=== PATIENT | male | born 1950 | race Caucasian/White ===

== ENCOUNTER 2019-10-26 20:34 | Inpatient (IN) ==
[2019-10-26] MEDS ORDERED: METOPROLOL TARTRATE 1 MG/ML VIAL IV STA (21:05)
[2019-10-26] MEDS ORDERED: SODIUM CHLORIDE 0.9% 500 ML IV SCH (21:15)
[2019-10-26 21:22] LABS: Basophils # (auto) 0.03 K/uL (0-0.2); Basophils % (auto) 0.3 %; Eosinophils # (auto) 0.48 K/uL (0-0.5); Hematocrit (blood only) 45.5 % (42-52); Hemoglobin 15.1 g/dL (14.0-18.0); Immature Granulocytes # (auto) 0.03 K/uL (0.00-0.02); Immature Granulocytes % (auto) 0.3 %; Lymphocytes # (auto) 1.77 K/uL (1.2-3.4); Lymphocytes % (auto) 18.6 %; Mean Corpuscular Hemoglobin 31.9 pg (25-34); Mean Corpuscular Hgb Conc 33.2 g/dL (32-36); Mean Platelet Volume 10.6 fL (7.4-10.4); Monocytes # (auto) 0.95 K/uL (0.11-0.59); Neutrophils # (auto) 6.26 K/uL (1.4-6.5); Neutrophils % (auto) 65.8 %; Platelet Count 172 K/uL (130-400); RDW Standard Deviation 45.7 fL (36.4-46.3); Red Blood Count 4.74 M/uL (4.7-6.1); White Blood Count 9.52 K/uL (4.8-10.8)
[2019-10-26 21:29] LABS: Albumin Level 3.2 gm/dl (3.4-5.0); BUN Creatinine Ratio 14.5 (10-20); Calcium 8.8 mg/dl (8.5-10.1); Creatinine Clr Calc Pharmacy 48.5 ml/min; Est GFR (African American) 56.1; Est GFR (Non-African American) 48.4; Magnesium 2.1 mg/dl (1.8-2.4); Potassium 3.2 mmol/L (3.5-5.1)
--- NOTE | 2019-10-26 21:30 | XRay Report ---
XR chest 1V portable HISTORY: weakness COMPARISON: None. FINDINGS: The heart is mildly enlarged. Left-sided dual-chamber pacemaker/defibrillator. The lungs ar e clear. No evidence for pulmonary edema. No pleural effusions. No pneumothorax. IMPRESSION: Mild cardiomegaly. Otherwise, no acute process within the chest. ACT 112: Negative or not required by law. Electronically signed by: Clayton Monroe M.D. 10/26/2019 9:29 PM
[2019-10-26] MEDS ORDERED: 0.2 MICRON FILTER SET 1 EA IV ONE ×2 (21:31→21:39)
[2019-10-26] MEDS ORDERED: AMIODARONE / D5W 150 MG/100 ML BAG IV ONE (21:31)
[2019-10-26 21:34] LABS: Albumin Globulin Ratio 0.8 (0.9-2); Bilirubin,Total 0.5 mg/dl (0.2-1); Globulin 3.9 gm/dl (2.5-4.0); Total Protein 7.1 gm/dl (6.4-8.2); Troponin I 0.032 ng/ml (0-0.045)
[2019-10-26 21:36] LABS: INR 1.1 (0.9-1.1); Partial Thromboplastin Ratio 0.9; Partial Thromboplastin Time 24.7 Seconds (21.0-31.0); Prothrombin Time 11.4 Seconds (9.0-12.0)
[2019-10-26] MEDS ORDERED: STAT IV Infusion **Titration per Protocol STA (21:39)
[2019-10-26] MEDS ORDERED: AMIODARONE / D5W 150 MG/100 ML BAG IV STA (21:39)
[2019-10-26] MEDS ORDERED: AMIODARONE IV BOLUS / DRIP IV STA (21:39)
[2019-10-26] MEDS ORDERED: AMIODARONE / D5W 360 MG/200 ML BAG IV SCH (21:45)
--- NOTE | 2019-10-26 22:34 | Emergency Department Note ---
Entered by Vanesa Ruiz acting as a scribe for History of Present Illness General Chief complaint: Cardiac Assessment Stated complaint: defib firing Time Seen by Provider: 10/26/19 20:55 Source: patient History of Present Illness Onset (ago): hour(s) (just prior to arrival) Location: chest Severity: similar to prior episodes Pain Consistency: + other (multiple episodes) Maximum Pain Intensity: 0 Quality: + other (defibrillator firing ) Associated symptoms: + other (negative dizziness; negative palpitations ); no ch est pain, no diaphoresis, no headaches and no shortness of breath The patient is a 69 year old male who presents to the Emergency Room with complaints of multiple episodes of defibrillator firing that occurred just prior to arrival. The patient states that it fired 10 times in approximately 30 minutes. He denies chest pain, shortness of breath, sweating, headache, dizziness, and palpitations. The patient states that he has felt at his baseline. The patient states that his defibrillator has gone off before but not recently. He states that he is currently on 12.5mg of Metoprolol once a day. Home Medications Home Medications Medication Instructions Recorded Confirmed Type aspirin [Aspir-Low] 81 mg PO DAILY 10/26/19 10/26/19 History furosemide [Lasix] 20 mg PO DAILY 10/26/19 10/26/19 History metoprolol succinate [Toprol XL] 12.5 mg PO DAILY 10/26/19 10/26/19 History nitroglycerin [Nitrostat] 0.4 mg SUBLINGUAL UD PRN 10/26/19 10/26/19 History ticagrelor [Brilinta] 90 mg PO DAILY 10/26/19 10/26/19 History Allergies Allergy/AdvReac Type Severity Reaction Status Date / Time No Known Allergies Allergy Unverified 10/26/19 21:13 Past Med/Surg History Medical History (Updated 10/26/19 @ 22:23 by Vanesa Ruiz) Cardiac defibrillator in place Ejection fraction < 50% Social History Preferred Language: Wolof Feels Safe at Home: Yes Smoking Status: Current every day smoker Review of Systems See HPI for pertinent positives & negatives. and A total of 10 systems reviewed and were otherwise negative Physical Exam Vital Signs Vital Signs - 24 hr 10/26/19 20:34 10/26/19 20:35 10/26/19 20:43 Temperature 36.8 C Temperature Source Oral Pulse Rate 116 H 123 H Pulse Rate from SpO2 Sensor Respiratory Rate 18 Blood Pressure 119/81 Blood Pressure Mean 93 Pulse Oximetry 93 92 90 Oxygen Delivery Method Room Air Room Air Room Air Sepsis Recent Fever Within 48 Hours No Sepsis New/Unexplained Change in Mental Status No Sepsis Action Taken by Nursing No Action Required 10/26/19 21:00 10/26/19 21:01 10/26/19 21:12 Temperature Temperature Source Pulse Rate 122 H 115 H 116 H Pulse Rate from SpO2 Sensor Respiratory Rate Blood Pressure 107/65 107/65 Blood Pressure Mean 78 Pulse Oximetry 92 92 Oxygen Delivery Method Room Air Room Air Sepsis Recent Fever Within 48 Hours Sepsis New/Unexplained Change in Mental Status Sepsis Action Taken by Nursing 10/26/19 21:30 10/26/19 21:35 10/26/19 21:46 Temperature Temperature Source Pulse Rate 103 H 105 H 80 Pulse Rate from SpO2 Sensor Respiratory Rate Blood Pressure 86/68 L 95/71 L 105/63 Blood Pressure Mean 70 76 76 Pulse Oximetry 90 92 94 Oxygen Delivery Method Room Air Room Air Room Air Sepsis Recent Fever Within 48 Hours Sepsis New/Unexplained Change in Mental Status Sepsis Action Taken by Nursing 10/26/19 22:00 10/26/19 22:01 10/26/19 22:15 Temperature Temperature Source Pulse Rate 80 93 H 86 Pulse Rate from SpO2 Sensor Respiratory Rate 23 Blood Pressure 81/61 L 91/59 L 95/63 L Blood Pressure Mean 62 65 68 Pulse Oximetry 97 95 93 Oxygen Delivery Method Room Air Room Air Room Air Sepsis Recent Fever Within 48 Hours Sepsis New/Unexplained Change in Mental Status Sepsis Action Taken by Nursing 10/26/19 22:31 10/26/19 22:45 Temperature Temperature Source Pulse Rate 89 88 Pulse Rate from SpO2 Sensor 82 Respiratory Rate 24 Blood Pressure 86/64 L 97/67 L Blood Pressure Mean 70 69 Pulse Oximetry 92 96 Oxygen Delivery Method Room Air Room Air Sepsis Recent Fever Within 48 Hours Sepsis New/Unexplained Change in Mental Status Sepsis Action Taken by Nursing GENERAL: Patient is in no acute distress. HEENT: No acute trauma, normocephalic atraumatic, mucous membranes moist, no n ana maria congestion, no scleral icterus. NECK: No stridor, no adenopathy, no meningismus, trachea is midline. LUNGS: Clear to auscultation bilaterally, no wheeze, no rhonchi, breath sounds equal. HEART: Tachycardic with a slightly irregular rhythm. No murmurs. ABDOMEN: Soft, nontender, bowel sounds positive, no hernias, no peritonitis. EXTREMITIES: No cyanosis or edema, full range of motion of all the joints without pain or difficulty, no signs for acute trauma. NEUROLOGIC: Oriented x 3, no acute motor or sensory deficits, no focal weakness. SKIN: No rash, no jaundice, no diaphoresis. Course Course 2055: Past medical records reviewed. The patient was evaluated in room A1. A complete history and physical exam was performed. 2: I discussed the case with a liability claims representative of [facility] who states that between 1899 and 2029, the patient was shocked between 11 and 12 times. He states that this was all due to SVT or Afib. He states that there was no evidence for ventricular dysrhythmia. The liability claims representative states that the defibrillator functioned as expected. 2126: I discussed the case with the doctor covering for Dr. Zamora who looked at the patient's chart and recommends Amiodarone. He accepts the patient to his facility if they have beds, but states that if not the patient can be kept here. 2206: I discussed the case with Dr. Zamora-Cardiology who states that he believes the patient can stay here on an Amiodarone drip and then eventually be discharged if he does well on this. He recommends follow up after the patient is discharged. 2222: Dr. Guadalupe-[facility] Hospitalist was made aware of the patient. Administered Medications Amiodarone HCl/Dextrose (Nexterone / D5w) 360 mg in 200 mls @ 33.333 mls/hr IV .Q6H CAITLYN Stop: 10/27/19 03:44 Last Admin: 10/26/19 22:02 Dose: 1 mg/min, 33.3 mls/hr Documented by: [id number] Cosigned by: [id number] Potassium Chloride (K Aron / Wtr) 10 meq in 100 mls @ 100 mls/hr IV Q1H CAITLYN Stop: 10/27/19 01:30 Last Admin: 10/26/19 23:59 Dose: 100 mls/hr Documented by: [id number] Infusion: 10/26/19 23:39 Dose: 100 mls/hr Documented by: [id number] Admin: 10/26/19 22:39 Dose: 100 mls/hr Documented by: [id number] Discontinued Medications Amiodarone HCl (Cordarone Iv Bolus / Drip) 1 ea IV NOW STA; Protocol Stop: 10/26/19 21:40 Last Admin: 10/26/19 22:03 Dose: Not Given Documented by: [id number] Sodium Chloride (Nss) 500 mls @ 999 mls/hr IV .Q31M CAITLYN Stop: 10/26/19 21:45 Last Infusion: 10/26/19 21:51 Dose: 0 mls/hr Documented by: [id number] Admin: 10/26/19 21:12 Dose: 999 mls/hr Documented by: [id number] Amiodarone HCl/Dextrose (Nexterone / D5w) 150 mg in 100 mls @ 600 mls/hr IV ONE ONE Stop: 10/26/19 21:40 Last Infusion: 10/26/19 22:05 Dose: 0 mls/hr Documented by: [id number] Cosigned by: [id number] Admin: 10/26/19 21:39 Dose: 600 mls/hr Documented by: [id number] Cosigned by: [id number] Amiodarone HCl/Dextrose (Nexterone / D5w) 150 mg in 100 mls @ 600 mls/hr IV ONE STA Stop: 10/26/19 21:48 Last Admin: 10/26/19 21:51 Dose: Not Given Documented by: [id number] Metoprolol Tartrate (Lopressor) 2.5 mg IV NOW STA Stop: 10/26/19 21:06 Last Admin: 10/26/19 21:12 Dose: 2.5 mg Documented by: [id number] Miscellaneous () 1 ea N/A NOW STA Stop: 10/26/19 21:40 Last Admin: 10/26/19 22:03 Dose: Not Given Documented by: [id number] Critical Care Time Critical Care Time: Yes Total Critical Care Time: 34 I have personally spent 34 minutes of critical care time in the direct management of this patient. This includes bedside care, interpretation of diagnostic studies, and testing, discussion with consultants, patient, and family members, and other required patient management activities. This 34 minutes is in excess of all separately billable procedures. Medical Decision Making Differential Diagnosis Differential diagnoses include SVT, Afib, VTach, electrolyte imbalance, anemia, NV, and others were considered. Home Medications Current Medication List: was personally reviewed by me Laboratory Data Attestation: I reviewed the patient's lab results. Result diagrams: 10/26/19 20:50 10/26/19 20:50 Lab Results 10/26/19 10/26/19 10/26/19 Range/Units 20:50 20:50 20:50 WBC 9.52 (4.8-10.8) K/uL RBC 4.74 (4.7-6.1) M/uL Hgb 15.1 (14.0-18.0) g/dL Hct 45.5 (42-52) % MCV 96.0 (80-100) fL MCH 31.9 (25-34) pg MCHC 33.2 (32-36) g/dL RDW Std Deviation 45.7 (36.4-46.3) fL RDW Coeff of Molly 13.0 (11.5-14.5) % Plt Count 172 (130-400) K/uL MPV 10.6 H (7.4-10.4) fL Immature Gran % (Auto) 0.3 % Neut % (Auto) 65.8 % Lymph % (Auto) 18.6 % Pitkin % (Auto) 10.0 % Eos % (Auto) 5.0 % Baso % (Auto) 0.3 % Immature Gran # (Auto) 0.03 H (0.00-0.02) K/uL Neut # (Auto) 6.26 (1.4-6.5) K/uL Lymph # (Auto) 1.77 (1.2-3.4) K/uL Pitkin # (Auto) 0.95 H (0.11-0.59) K/uL Eos # (Auto) 0.48 (0-0.5) K/uL Baso # (Auto) 0.03 (0-0.2) K/uL PT 11.4 (9.0-12.0) Seconds INR 1.1 (0.9-1.1) APTT 24.7 (21.0-31.0) Seconds PTT Ratio 0.9 Sodium 140 (136-145) mmol/L Potassium 3.2 L (3.5-5.1) mmol/L Chloride 106 (98-107) mmol/L Carbon Dioxide 28 (21-32) mmol/L Anion Gap 6.0 (3-11) BUN 21 H (7-18) mg/dl Creatinine 1.46 H (0.6-1.4) mg/dl Est Cr Clr Drug Dosing 48.5 ml/min Est GFR ( Amer) 56.1 Est GFR (Non-Af Amer) 48.4 BUN/Creatinine Ratio 14.5 (10-20) Glucose 176 H (70-99) mg/dl Calcium 8.8 (8.5-10.1) mg/dl Magnesium 2.1 (1.8-2.4) mg/dl Total Bilirubin 0.5 (0.2-1) mg/dl AST 13 L (15-37) U/L ALT 14 (12-78) U/L Alkaline Phosphatase 62 (45-117) U/L Troponin I 0.032 (0-0.045) ng/ml Total Protein 7.1 (6.4-8.2) gm/dl Albumin 3.2 L (3.4-5.0) gm/dl Globulin 3.9 (2.5-4.0) gm/dl Albumin/Globulin Ratio 0.8 L (0.9-2) Imaging Data Radiologist's Impression: Radiology results as stated below per my review and the radiologist's interpretation: XR chest 1V portable HISTORY: weakness COMPARISON: None. FINDINGS: The heart is mildly enlarged. Left-sided dual-chamber pacemaker/defibrillator. The lungs are clear. No evidence for pulmonary edema. No pleural effusions. No pneumothorax. IMPRESSION: Mild cardiomegaly. Otherwise, no acute process within the chest. ACT 112: Negative or not required by law. Electronically signed by: Clayton Monroe M.D. 10/26/2019 9:29 PM ECG Data Attestation: I personally reviewed and interpreted this ECG as follows: Indication: + tachycardia Rate (beats per minute): 117 Rhythm: + sinus tachycardia ECG Intervals/blocks: + First degree AV block and + Normal QT-c (485) ECG Findings: + PVCs and + Other (old inferior infarct ) Blood Pressure Blood Pressure Findings: Low blood pressure Blood Pressure Disposition: further management by hospitalist [facility] Narrative There is no leukocytosis or concerning anemia. No coagulopathy. Potassium slightly low at 3.2. Creatinine was slightly high at 1.46. There was no liver enzyme elevation. EKG showed what appears to be a sinus tachycardia with PVCs. Cardiac enzyme testing x1 is not consistent with acute cardiac injury. Chest film shows cardiomegaly, no CHF. On exam, the patient was in no distress and resting comfortably. The patient's defibrillator was evaluated by [facility]. The patient had 11-12 defibrillations. The patient had been in SVT or A. fib. There was no ventricular dysrhythmia. In short, the defibrillator worked appropriately. The patient received a 500 cc saline bolus. He was given 2.5 mg of IV Lopressor. The patient was eventually given a bolus of IV amiodarone and placed on an amiodarone drip. I did discuss the patient's case with his cardiology service in [place]. They recommended the amiodarone load and a hospital stay. The patient is aware of all his findings, I did speak with case management. The on-call hospitalist has been consulted. It appears that A. fib/SVT triggered the defibrillator firing. Continuous Cardiac Monitoring: An order was placed for continuous cardiac monitoring. The monitor shows a rate of 115 with sinus tachycardia with occasional PVCs. Impression & Plan SVT (supraventricular tachycardia), Rapid atrial fibrillation, Defibrillator discharge, Hypotension Discharge Plan Visit Data Chief Complaint: Cardiac Assessment Stated Complaint: defib firing ED Provider: Ramez Strong Discharge Problem: SVT (supraventricular tachycardia), Rapid atrial fibrillation, Defibrillator discharge, Hypotension Patient Disposition: Being Evaluated by Hospitalist Discharge Instructions Interventions: ED Discharge Assessment Last Done: 10/27/19 00:06 Discharge Problem: Hypotension Qualifiers: Hypotension type: unspecified hypotension type Qualified Code(s): I95.9 - Hypotension, unspecified The scribe's documentation has been prepared under my direction and personally reviewed by me in its entirety. I confirm that the note above accurately reflects all work, treatment, procedures, and medical decision making performed by me.
[2019-10-26] MEDS: POTASSIUM CHLORIDE / WTR 10 MEQ/100 ML PLCT IV SCH ×2 (22:39→23:59)
--- NOTE | 2019-10-26 23:17 | History & Physical Report ---
Date of Service October 26, 2019 Assessment & Plan (1) Defibrillator discharge: Defibrillator discharge reported 10 times and over 30-minute interval prior to arrival. Likely related to hypokalemia and dehydration. He will be given 3K riders with and will recheck laboratories in a.m. Patient was restarted on amiodarone via bolus and drip, and will need to resume oral dosing. Consult cardiology in the a.m. Patient follows with Dr. Kohler from cardiology in [place]. Present on Admission?: Yes (2) HFrEF (heart failure with reduced ejection fraction): Ejection fraction was reported over the phone to ED staff to be in the 10 to 15% range. Gently rehydrate in the ED., And then resume oral Lasix dosing in a.m. with oral potassium supplementation. Present on Admission?: Yes (3) SVT (supraventricular tachycardia): See above Present on Admission?: Yes (4) Rapid atrial fibrillation: See above Present on Admission?: Yes (5) Hypotension: Patient blood pressure did briefly drop into the low to mid 80s, but did improve with some mild rehydration with IV fluids back to his baseline which is reportedly in the low 90s. Present on Admission?: Yes (6) Back pain: Patient reports chronic low back pain with decreased sensation in the perineal area, with inability to sense time for urination, since an accident years ago. He requested that a Meredith catheter be placed. Present on Admission?: Yes History of Present Illness Chief Complaint: The patient presents to the emergency department with complaint of 10 episodes of defibrillator firing over a span of 30 minutes that occurred just prior to arrival. 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 He presents to the emergency department with reported 10 episodes of AICD firing over a 30-minute interval just prior to arrival to the ED. His history obtained by the ED from his glove cleaner Dr. Kohler in [place] is that the patient had amiodarone stopped 6 months ago for unknown reasons. In the emergency department he was started on an amiodarone bolus and then drip per protocol, which improved heart rate into the 90-100 range, with systolic blood pressure in the mid 80s to mid 90 range. He was also found to have a potassium of 3.2 on laboratories. Allergies Allergy/AdvReac Type Severity Reaction Status Date / Time No Known Allergies Allergy Unverified 10/26/19 21:13 Home Medications Home Medications Medication Instructions Recorded Confirmed Type aspirin [Aspir-Low] 81 mg PO DAILY 10/26/19 10/26/19 History furosemide [Lasix] 20 mg PO DAILY 10/26/19 10/26/19 History metoprolol succinate [Toprol XL] 12.5 mg PO DAILY 10/26/19 10/26/19 History nitroglycerin [Nitrostat] 0.4 mg SUBLINGUAL UD PRN 10/26/19 10/26/19 History ticagrelor [Brilinta] 90 mg PO DAILY 10/26/19 10/26/19 History Past Med/Surg History Social History Preferred Language: Bahraini Communication Ability: Effective In Home Nanny Required: No Beliefs That Will Affect Care: None Current Living Situation: Family Other Information That Helps Us Care for You: No Feels Safe at Home: Yes Safety Concerns: Feels Safe At This Time Smoking Status: Unknown if ever smoked Hx Alcohol Use: No Hx Substance Use: No Review of Systems Review of Systems: The patient denies chest pain, palpitations, cough, lower extremity swelling, sore throat, fevers, chills, sweats, fatigue, nausea, vomiting, diarrhea , constipation, abdominal pain, pelvic pain, blood in urine or stool, dysuria, urinary frequency or urgency, headache, memory loss, loss of consciousness, rash, abnormal bruising or bleeding, imbalance, focal weakness, numbness or tingling in arms or legs, generalized arthralgias or myalgias, neck pain, or night sweats. The review of systems is otherwise negative other than for that already noted above, and at least 10 systems have been reviewed. Physical Exam Physical Exam: The patient is awake, alert and oriented 3, looks chronically ill, normocephalic and atraumatic, lying in bed and in no acute distress. HEENT--PERRL, EOMI, mucous membranes and oropharynx dry. Neck--supple. No JVD. No bruits. Thyroid normal, trachea midline, no adenopathy. Heart--irregular and tachycardic. No murmurs, rubs or gallops. Lungs--decreased breath sounds throughout. No respiratory distress, no accessory muscle use. Abdomen--normal bowel sounds and soft. Nontender. Nondistended, no hernias or masses, no organomegaly. Extremities--no cyanosis or clubbing. No edema. Dermatologic--normal skin turgor, normal color, no rash. Neurologic--cranial nerves II through XII grossly intact. Rheumatologic--limited exam Psychiatric--normal affect. Results & Data Vital Signs (Past 12 Hours) Vital Signs Temp Pulse Resp BP Pulse Ox 10/26/19 22:45 88 24 97/67 L 96 10/26/19 22:31 89 86/64 L 92 10/26/19 22:15 86 23 95/63 L 93 10/26/19 22:01 93 H 91/59 L 95 10/26/19 22:00 80 81/61 L 97 10/26/19 21:46 80 105/63 94 10/26/19 21:35 105 H 95/71 L 92 10/26/19 21:30 103 H 86/68 L 90 10/26/19 21:12 116 H 107/65 10/26/19 21:01 115 H 107/65 92 10/26/19 21:00 122 H 92 10/26/19 20:43 123 H 90 10/26/19 20:35 92 10/26/19 20:34 98.2 F 116 H 18 119/81 93 Laboratory Results Laboratory Results WBC 9.52 K/uL (4.8-10.8) 10/26/19 20:50 RBC 4.74 M/uL (4.7-6.1) 10/26/19 20:50 Hgb 15.1 g/dL (14.0-18.0) 10/26/19 20:50 Hct 45.5 % (42-52) 10/26/19 20:50 MCV 96.0 fL (80-100) 10/26/19 20:50 MCH 31.9 pg (25-34) 10/26/19 20:50 MCHC 33.2 g/dL (32-36) 10/26/19 20:50 RDW Std Deviation 45.7 fL (36.4-46.3) 10/26/19 20:50 RDW Coeff of Molly 13.0 % (11.5-14.5) 10/26/19 20:50 Plt Count 172 K/uL (130-400) 10/26/19 20:50 MPV 10.6 fL (7.4-10.4) H 10/26/19 20:50 Immature Gran % (Auto) 0.3 % 10/26/19 20:50 Neut % (Auto) 65.8 % 10/26/19 20:50 Lymph % (Auto) 18.6 % 10/26/19 20:50 Wood % (Auto) 10.0 % 10/26/19 20:50 Eos % (Auto) 5.0 % 10/26/19 20:50 Baso % (Auto) 0.3 % 10/26/19 20:50 Immature Gran # (Auto) 0.03 K/uL (0.00-0.02) H 10/26/19 20:50 Neut # (Auto) 6.26 K/uL (1.4-6.5) 10/26/19 20:50 Lymph # (Auto) 1.77 K/uL (1.2-3.4) 10/26/19 20:50 Wood # (Auto) 0.95 K/uL (0.11-0.59) H 10/26/19 20:50 Eos # (Auto) 0.48 K/uL (0-0.5) 10/26/19 20:50 Baso # (Auto) 0.03 K/uL (0-0.2) 10/26/19 20:50 PT 11.4 Seconds (9.0-12.0) 10/26/19 20:50 INR 1.1 (0.9-1.1) 10/26/19 20:50 APTT 24.7 Seconds (21.0-31.0) 10/26/19 20:50 PTT Ratio 0.9 10/26/19 20:50 Sodium 140 mmol/L (136-145) 10/26/19 20:50 Potassium 3.2 mmol/L (3.5-5.1) L 10/26/19 20:50 Chloride 106 mmol/L (98-107) 10/26/19 20:50 Carbon Dioxide 28 mmol/L (21-32) 10/26/19 20:50 Anion Gap 6.0 (3-11) 10/26/19 20:50 BUN 21 mg/dl (7-18) H 10/26/19 20:50 Creatinine 1.46 mg/dl (0.6-1.4) H 10/26/19 20:50 Est Cr Clr Drug Dosing 48.5 ml/min 10/26/19 20:50 Est GFR ( Amer) 56.1 10/26/19 20:50 Est GFR (Non-Af Amer) 48.4 10/26/19 20:50 BUN/Creatinine Ratio 14.5 (10-20) 10/26/19 20:50 Glucose 176 mg/dl (70-99) H 10/26/19 20:50 Calcium 8.8 mg/dl (8.5-10.1) 10/26/19 20:50 Magnesium 2.1 mg/dl (1.8-2.4) 10/26/19 20:50 Total Bilirubin 0.5 mg/dl (0.2-1) 10/26/19 20:50 AST 13 U/L (15-37) L 10/26/19 20:50 ALT 14 U/L (12-78) 10/26/19 20:50 Alkaline Phosphatase 62 U/L (45-117) 10/26/19 20:50 Troponin I 0.179 ng/ml (0-0.045) H* 10/27/19 00:33 Total Protein 7.1 gm/dl (6.4-8.2) 10/26/19 20:50 Albumin 3.2 gm/dl (3.4-5.0) L 10/26/19 20:50 Globulin 3.9 gm/dl (2.5-4.0) 10/26/19 20:50 Albumin/Globulin Ratio 0.8 (0.9-2) L 10/26/19 20:50 Diagnostic Findings [facility] [phone] XRay Report Patient: AMANDEEP PATEAdmit Date: 10/26/19 MR#: [id number]: [address] Y Acct ID:[id number]: Date: 1950[facility] [id number] Age: 69Location: ED Sex: M Room/Bed: Att Phy:Diagnosis: defib firing [place] Phy: PCP,NOService Date: 10/26/19 Fam Phy:Interpreting Phy: Clayton Monroe MD Admit Phy: Ordering Phy: Ramez Strong M.D. cc: ~ XR chest 1V portable HISTORY: weakness COMPARISON: None. FINDINGS: The heart is mildly enlarged. Left-sided dual-chamber pacemaker/defibrillator. The lungs are clear. No evidence for pulmonary edema. No pleural effusions. No pneumothorax. IMPRESSION: Mild cardiomegaly. Otherwise, no acute process within the chest. ACT 112: Negative or not required by law. Electronically signed by: Clayton Monroe M.D. 10/26/2019 9:29 PM Dictated: 10/26/192127 Transcribed: 10/26/192127 Code Status & VTE Plan Code Status Full code VTE Prophylaxis Plan VTE Prophylaxis will be ordered: Yes PG Care Time/CCT Total # of Minutes Spent Total Time Spent with Patient: Total time spent is greater than 50% in coordination of care (as documented) at patient's floor/unit and/or counseling patient: Coding Level of Care Code 12206 Initial Inpt Care Lvl 3 Diagnoses Defibrillator discharge Z45.02 HFrEF (heart failure with reduced ejection fraction) I50.20 SVT (supraventricular tachycardia) I47.1 Rapid atrial fibrillation I48.91 Hypotension I95.9 Hypotension type: unspecified hypotension type Back pain M54.9 (1) Hypotension Hypotension type: unspecified hypotension type Qualified Code(s): I95.9 - Hypotension, unspecified
[2019-10-27] MEDS ORDERED: MAGNESIUM HYDROXIDE SUSP 30 ML UDC PO PRN (00:14)
[2019-10-27] MEDS ORDERED: NITROGLYCERIN SL 0.4 MG/TAB TAB SL PRN (00:14)
[2019-10-27] MEDS ORDERED: ALUMINUM/MAGNESIUM SUSP 30 ML UDC PO PRN (00:14)
[2019-10-27] MEDS ORDERED: ACETAMINOPHEN 325 MG TAB PO PRN (00:14)
[2019-10-27] MEDS ORDERED: ONDANSETRON INJ 2 MG/ML 2 ML VIAL IV PRN (00:14)
[2019-10-27] MEDS: POTASSIUM CHLORIDE / WTR 10 MEQ/100 ML PLCT IV SCH (01:00)
[2019-10-27] MEDS: TICAGRELOR 90 MG TAB PO SCH ×2 (01:05→08:27)
[2019-10-27] MEDS ORDERED: AMIODARONE / D5W 360 MG/200 ML BAG IV SCH (03:40)
[2019-10-27] MEDS ORDERED: SODIUM CHLORIDE 0.9% 1000ML 250 ML IV ONE (07:33)
[2019-10-27 08:10] LABS: Basophils # (auto) 0.04 K/uL (0-0.2); Basophils % (auto) 0.4 %; Eosinophils # (auto) 0.47 K/uL (0-0.5); Eosinophils % (auto) 4.5 %; Hematocrit (blood only) 42.6 % (42-52); Immature Granulocytes # (auto) 0.01 K/uL (0.00-0.02); Immature Granulocytes % (auto) 0.1 %; Lymphocytes # (auto) 1.73 K/uL (1.2-3.4); Lymphocytes % (auto) 16.5 %; Mean Corpuscular Hemoglobin 31.9 pg (25-34); Mean Corpuscular Hgb Conc 32.9 g/dL (32-36); Mean Platelet Volume 10.2 fL (7.4-10.4); Monocytes # (auto) 1.17 K/uL (0.11-0.59); Monocytes % (auto) 11.2 %; Neutrophils # (auto) 7.04 K/uL (1.4-6.5); Neutrophils % (auto) 67.3 %; Platelet Count 162 K/uL (130-400); RDW Coefficient of Variation 13.1 % (11.5-14.5); RDW Standard Deviation 45.8 fL (36.4-46.3); Red Blood Count 4.39 M/uL (4.7-6.1); White Blood Count 10.46 K/uL (4.8-10.8)
[2019-10-27 08:15] LABS: INR 1.2 (0.9-1.1); Prothrombin Time 11.9 Seconds (9.0-12.0)
[2019-10-27 08:16] LABS: Albumin Level 2.7 gm/dl (3.4-5.0); BUN Creatinine Ratio 13.9 (10-20); Calcium 8.2 mg/dl (8.5-10.1); Creatinine Clr Calc Pharmacy 58.1 ml/min; Est GFR (African American) 71.1; Est GFR (Non-African American) 61.3; Magnesium 1.9 mg/dl (1.8-2.4); Potassium 3.9 mmol/L (3.5-5.1)
[2019-10-27] MEDS ORDERED: ASPIRIN 81 MG ECTAB PO SCH (09:00)
[2019-10-27] MEDS ORDERED: METOPROLOL SUCC 25MG EXT REL TAB PO SCH (09:00)
[2019-10-27] MEDS ORDERED: HEPARIN SOD 5,000 UNIT/0.5 ML VIAL SQ SCH (09:00)
[2019-10-27] MEDS ORDERED: FUROSEMIDE 20 MG TAB PO SCH (09:00)
--- NOTE | 2019-10-27 09:17 | Cardiology Consultation ---
Date of Consultation October 27, 2019 Assessment & Plan (1) HFrEF (heart failure with reduced ejection fraction): (2) Defibrillator discharge: (3) Rapid atrial fibrillation: (4) Coronary artery disease: Patient with significant cardiac history including CAD status post multiple PCI, ischemic cardiomyopathy, chronic systolic CHF, ICD, and atrial fibrillation with RVR. Admitted yesterday after multiple ICD shocks at home. Device interrogation reviewed with Dr. Snyder. Patient was inappropriately shocked due to device detecting rapid atrial fibrillation/flutter as ventricular arrhythmia. On exam well perfused without evidence of heart failure. No chest pain or recent anginal symptoms. Mildly elevated troponin likely secondary to ICD shocks, low suspicion for ACS. Patient plans to followup with his usual jig builder helper and therefore will avoid making any significant changes to his medications, device at this time. Please see Dr. Snyder's recommendations. Supervising Physician Co-Signing Physician Notes Patient was seen and examined in his room. Agree with Katharine's assessment. I reviewed his device interrogation in detail, his multiple ICD shocks began when he went into atrial fibrillation with a rapid ventricular response (around 150 bpm with a VT setting of 141), however initially the device appropriately interpreted the atrial fibrillation as supraventricular and withheld therapy. The atrial rhythm however subsequently changed to a regular atrial tachycardia or slow atrial flutter at just over 200 bpm and was therefore treated as ventricular tachycardia, this resulted in antitachycardia pacing in the ventricle which induced ventricular fibrillation which was appropriately treated by the ICD. This happened on several occasions. The ICD function properly based on its programmed settings although delivered inappropriate shocks. I discussed options with the patient however he prefers to follow-up with his regular jig builder helper in [place], Dr. Kohler. My suggestions were to increase his ventricular tachycardia detection rate as long as he has not had documented ventricular tachycardia in this range, I do not have enough records to be sure of that. Other options include AV leny blocking medications, his blood pressure is low but I do not know if he has been tried on higher doses of beta- blockade but is difficult to tell how high dose we might need. Addition of digoxin would probably be in order. Continuation of amiodarone as an oral agent is reasonable (he has been on it before) but that is not a good short-term solution since will take some time to achieve a therapeutic level. Finally an option of creating AV leny block with AV leny ablation and implanting a biventricular device rather than a single ventricular lead is also a consideration. I will leave our immediate plan up to Dr. Kohler, the patient expressed a wish to be discharged and have follow-up there. It should be safe to go home, although he may receive inappropriate shocks if he has more atrial fibrillation. History of Present Illness Reason for Consultation: ICD shock Attending Physician: Myke Barcenas MD History of Present Illness Mr. Doll is a pleasant 69 year old male admitted after multiple ICD shocks at home yesterday. His medical history is significant for coronary artery disease post multiple PCI most recently 02/2019 (details unknown), ischemic cardiomyopathy (EF reportedly 25%), chronic systolic CHF, tobacco use, atrial fibrillation with RVR post ?ablation, history of ventricular arrhythmias, ICD implantation. He is followed by Dr. Kohler at [facility]. Patient's cardiac history dates back to 2000 when he suffered a myocardial infarction and underwent PCI at [facility] (details unknown). He reports that 10 months later had another PA with PCI to previously stented vessel with 2 stents. 3 months later again underwent PCI to same vessel according to him. With all episodes he experienced chest pain. In 2011 underwent some sort of ablation and at that time his amiodarone was discontinued. Several months later had multiple ICD shocks and amiodarone was resumed. In February 2019 he underwent repeat cardiac catheterization with PCI to a different coronary artery than prior PCIs. Also believes he had some sort of repeat ablation procedure and his amiodarone was again discontinued. He did well until yesterday evening when he was walking into his living room and suddenly felt multiple shocks. He called 911 and was brought to [facility] via ambulance. He reports that earlier in the day he felt well. Denies any chest pain, shortness of breath, palpitations, lightheadedness, near syncope or syncope. Remains fairly active without exertional symptoms. Take Lasix 40 mg daily and no orthopnea, PND or significant edema of late. His device was interrogated and shows multiple episodes of atrial flutter/fibrillation with RVR detected by his device as ventricular arrhythmia due to his device settings. His device then attempted to pace him out of the rhythm causing ventricular arrhythmia and subsequently he was shocked. He given amiodarone bolus and now on amiodarone drip. Troponin initially 0.032 and trended to 0.252. Initial EKG sinus tachycardia with frequent PVCs. EKG today a trial paced with frequent PVCs. Not on chronic anticoagulation. Currently patient is feeling well. No recurrent shocks. He is anxious to go home. Social history: . 2 adult children. 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 Smokes 1 pack per day. Occasional alcohol. No drug use. Allergies Allergy/AdvReac Type Severity Reaction Status Date / Time No Known Allergies Allergy Unverified 10/26/19 21:13 Home Medications Home Medications Medication Instructions Recorded Confirmed Type aspirin [Aspir-Low] 81 mg PO DAILY 10/26/19 10/26/19 History furosemide [Lasix] 20 mg PO DAILY 10/26/19 10/26/19 History metoprolol succinate [Toprol XL] 12.5 mg PO DAILY 10/26/19 10/26/19 History nitroglycerin [Nitrostat] 0.4 mg SUBLINGUAL UD PRN 10/26/19 10/26/19 History ticagrelor [Brilinta] 90 mg PO DAILY 10/26/19 10/26/19 History potassium chloride 20 meq PO DAILY #14 tab 10/27/19 Rx Patient History Medical History (Updated 10/27/19 @ 11:35 by Katharine Roberts PA-C) Cardiac defibrillator in place Ejection fraction < 50% HFrEF (heart failure with reduced ejection fraction) Social History Preferred Language: Estonian Communication Ability: Effective Quarter Section Ironer Required: No Beliefs That Will Affect Care: None Current Living Situation: Family Other Information That Helps Us Care for You: No Feels Safe at Home: Yes Safety Concerns: Feels Safe At This Time Smoking Status: Unknown if ever smoked Hx Alcohol Use: No Hx Substance Use: No Review of Systems Review of Systems: All systems reviewed & are unremarkable except as noted in HPI & below Physical Exam Physical Exam: General: No acute distress, comfortable. HEENT: Head is normal. PERRLA. EOMI. Sclerae anicteric. Ears, nose and throat unremarkable. Mucous membranes moist. Neck: Normal carotid upstrokes, no bruits. No appreciable JVD. Lungs: Clear to auscultation bilaterally without rales, rhonchi or wheezes. Cardiac: Regular rate and rhythm. S1-S2 normal. No appreciable murmur, gallop or rub. Abdomen: Soft and nontender. Bowel sounds normal. No mass or organomegaly. No abdominal bruit. Extremities/vascular: Well perfused. No peripheral edema. Radial, DP and PT pulses 2+ bilaterally Skin: No rash or abnormal lesions. Normal turgor. Neurologic: Nonfocal Psychiatric: Affect appropriate. Alert and oriented. Results & Data ([facility]) Vital Signs (Past 12 Hours) Vital Signs Temp Pulse Pulse Resp BP BP Pulse Ox 10/27/19 08:32 89 100/69 10/27/19 08:22 78/59 L 10/27/19 07:58 36.9 C 84 18 82/57 L 96 10/27/19 04:44 36.9 C 74 18 84/60 L 92 10/27/19 00:52 36.6 C 66 18 109/68 95 10/27/19 00:06 96 H 18 97/72 L 99 10/26/19 23:30 94 H 18 92/56 L 96 10/26/19 22:45 88 24 97/67 L 96 10/26/19 22:31 89 86/64 L 92 10/26/19 22:15 86 23 95/63 L 93 10/26/19 22:01 93 H 91/59 L 95 10/26/19 22:00 80 81/61 L 97 10/26/19 21:46 80 105/63 94 10/26/19 21:35 105 H 95/71 L 92 10/26/19 21:30 103 H 86/68 L 90 10/26/19 21:12 116 H 107/65 Laboratory Results Laboratory Results WBC 9.52 K/uL (4.8-10.8) 10/26/19 20:50 RBC 4.74 M/uL (4.7-6.1) 10/26/19 20:50 Hgb 15.1 g/dL (14.0-18.0) 10/26/19 20:50 Hct 45.5 % (42-52) 10/26/19 20:50 MCV 96.0 fL (80-100) 10/26/19 20:50 MCH 31.9 pg (25-34) 10/26/19 20:50 MCHC 33.2 g/dL (32-36) 10/26/19 20:50 RDW Std Deviation 45.7 fL (36.4-46.3) 10/26/19 20:50 RDW Coeff of Molly 13.0 % (11.5-14.5) 10/26/19 20:50 Plt Count 172 K/uL (130-400) 10/26/19 20:50 MPV 10.6 fL (7.4-10.4) H 10/26/19 20:50 Immature Gran % (Auto) 0.3 % 10/26/19 20:50 Neut % (Auto) 65.8 % 10/26/19 20:50 Lymph % (Auto) 18.6 % 10/26/19 20:50 [place] % (Auto) 10.0 % 10/26/19 20:50 Eos % (Auto) 5.0 % 10/26/19 20:50 Baso % (Auto) 0.3 % 10/26/19 20:50 Immature Gran # (Auto) 0.03 K/uL (0.00-0.02) H 10/26/19 20:50 Neut # (Auto) 6.26 K/uL (1.4-6.5) 10/26/19 20:50 Lymph # (Auto) 1.77 K/uL (1.2-3.4) 10/26/19 20:50 [place] # (Auto) 0.95 K/uL (0.11-0.59) H 10/26/19 20:50 Eos # (Auto) 0.48 K/uL (0-0.5) 10/26/19 20:50 Baso # (Auto) 0.03 K/uL (0-0.2) 10/26/19 20:50 PT 11.4 Seconds (9.0-12.0) 10/26/19 20:50 INR 1.1 (0.9-1.1) 10/26/19 20:50 APTT 24.7 Seconds (21.0-31.0) 10/26/19 20:50 PTT Ratio 0.9 10/26/19 20:50 Sodium 140 mmol/L (136-145) 10/26/19 20:50 Potassium 3.2 mmol/L (3.5-5.1) L 10/26/19 20:50 Chloride 106 mmol/L (98-107) 10/26/19 20:50 Carbon Dioxide 28 mmol/L (21-32) 10/26/19 20:50 Anion Gap 6.0 (3-11) 10/26/19 20:50 BUN 21 mg/dl (7-18) H 10/26/19 20:50 Creatinine 1.46 mg/dl (0.6-1.4) H 10/26/19 20:50 Est Cr Clr Drug Dosing 48.5 ml/min 10/26/19 20:50 Est GFR ( Amer) 56.1 10/26/19 20:50 Est GFR (Non-Af Amer) 48.4 10/26/19 20:50 BUN/Creatinine Ratio 14.5 (10-20) 10/26/19 20:50 Glucose 176 mg/dl (70-99) H 10/26/19 20:50 Calcium 8.8 mg/dl (8.5-10.1) 10/26/19 20:50 Magnesium 2.1 mg/dl (1.8-2.4) 10/26/19 20:50 Total Bilirubin 0.5 mg/dl (0.2-1) 10/26/19 20:50 AST 13 U/L (15-37) L 10/26/19 20:50 ALT 14 U/L (12-78) 10/26/19 20:50 Alkaline Phosphatase 62 U/L (45-117) 10/26/19 20:50 Troponin I 0.179 ng/ml (0-0.045) H* 10/27/19 00:33 Total Protein 7.1 gm/dl (6.4-8.2) 10/26/19 20:50 Albumin 3.2 gm/dl (3.4-5.0) L 10/26/19 20:50 Globulin 3.9 gm/dl (2.5-4.0) 10/26/19 20:50 Albumin/Globulin Ratio 0.8 (0.9-2) L 10/26/19 20:50 ECG Additional Comments: Tele reviewed-- atrial paced with frequent ectopy. No ventricular arrhtyhmias. PG Care Time/CCT Total # of Minutes Spent Total Time Spent with Patient: Total time spent is greater than 50% in coordination of care (as documented) at patient's floor/unit and/or counseling patient: Coding Level of Care Code 44256 Initial Inpt Care Lvl 3 Diagnoses HFrEF (heart failure with reduced ejection fraction) I50.20 Defibrillator discharge Z45.02 Rapid atrial fibrillation I48.91 Coronary artery disease I25.10
[2019-10-27] MEDS ORDERED: MAGNESIUM SULFATE / D5W 1 GM/100 ML BAG IV ONE (12:15)
--- NOTE | 2019-10-27 15:54 | Discharge Summary ---
Date of Service October 27, 2019 Admission HPI Per Admitting Provider The patient is a 69-year-old male with a past medical history including SVT, atrial fibrillation with RVR, HFrEF with ejection fraction 10 to 15%, hypertension, and chronic back pain with lack of pelvic sensation due to trauma. He presents to the emergency department with reported 10 episodes of AICD firing over a 30-minute interval just prior to arrival to the ED. His history obtained by the ED from his hogshead hooper Dr. Kohler in [place] is that the patient had amiodarone stopped 6 months ago for unknown reasons. In the emergency department he was started on an amiodarone bolus and then drip per protocol, which improved heart rate into the 90-100 range, with systolic blood pressure in the mid 80s to mid 90 range. He was also found to have a potassium of 3.2 on laboratories. Admission Exam Per Admitting Provider The patient is awake, alert and oriented 3, looks chronically ill, normocephalic and atraumatic, lying in bed and in no acute distress. HEENT--PERRL, EOMI, mucous membranes and oropharynx dry. Neck--supple. No JVD. No bruits. Thyroid normal, trachea midline, no adenopathy. Heart--irregular and tachycardic. No murmurs, rubs or gallops. Lungs--decreased breath sounds throughout. No respiratory distress, no accessory muscle use. Abdomen--normal bowel sounds and soft. Nontender. Nondistended, no hernias or masses, no organomegaly. Extremities--no cyanosis or clubbing. No edema. Dermatologic--normal skin turgor, normal color, no rash. Neurologic--cranial nerves II through XII grossly intact. Rheumatologic--limited exam Psychiatric--normal affect. Principal Diagnosis Ventricular fibrillation, appropriately shocked by ICD Atrial tachycardia or slow atrial flutter causing inappropriate antitachycardia pacing in the ventricle inducing ventricular fibrillation Atrial fibrillation with RVR Discharge Exam Constitutional well developed; + not well nourished and no acute distress Respiratory normal respiratory effort, lungs clear to auscultation Cardiovascular Rate/Rhythm: regular rate and regular rhythm (frequent skipped beats) Heart Sounds: no murmur Gastrointestinal (Abdomen) normal bowel sounds, soft, nontender, no hepatosplenomegaly Musculoskeletal no cyanosis or clubbing, extremities motor strength 5/5 Skin Laceration on left thumb without surrounding cellulitis. Neurologic moves all extremities and awake; not confused Psychiatric A+Ox3, euthymic affect Discharge Data Allergies Allergy/AdvReac Type Severity Reaction Status Date / Time No Known Allergies Allergy Unverified 10/26/19 21:13 Consultations 10/26/19 22:08 ED Decision to Admit Stat 10/27/19 00:14 Consult Cardiology Routine Consult Case Management - Discharge Planning Routine Hospital Course (1) Defibrillator discharge: Noah Doll is a 69 year old male admitted to [facility] on October 26 due to ICD firing. Appears this was caused by inappropriate overpacing due to settings too low on his pacemaker which lead to ventricular fibrillation and subsequent appropriate ICD firing. This was discussed with our termite exterminator helper (Dr Snyder) and his hogshead hooper Dr Kohler. Pacemaker settings were changed as per Dr Kohler's instructions as they were determined to be too low around 141 ms. This was changed to > 200 ms. He will follow up with Dr Kohler on discharge (appointment to be arranged by their clinic). Hypokalemic on admission K - 3.2 -> 3.9 on discharge. Recommended potassium chloride 20 meq added to his regimen. Need for this should be continually reassessed. (2) HFrEF (heart failure with reduced ejection fraction): (3) SVT (supraventricular tachycardia): (4) Rapid atrial fibrillation: (5) Hypotension: (6) Back pain: Total Time Total Time Spent Total Time Spent (In Minutes): 45 Total Time Includes: Examination of the Patient, Discharge Planning, Medication Reconciliation and Communication With Other Providers (Dr Snyder and Dr Kohler) Discharge Plan Discharge Items Patient Disposition: Home - Self-Care Reason For Visit: AICD FIRING Discharge Diagnosis: Ventricular fibrillation, appropriately shocked by ICD Atrial tachycardia or slow atrial flutter causing inappropriate antitachycardia pacing in the ventricle inducing ventricular fibrillation Atrial fibrillation with RVR Activity: Resume your previous activity Non-emergency contact: Eyeletter Call non-emergency contact if: you have any medication questions Follow-up/Referrals: Kashif Poole [Primary Care Provider] - 11/01/19 10:30 am Diet: Heart Healthy and Low Sodium (2gm) Addtl Attending Provider Instructions: You were admitted to [facility] on October 26 due to ICD firing. This was discussed with our termite exterminator helper (Dr Snyder) and your hogshead hooper Dr Kohler. Your pacemaker settings were changed. Your ventricular tachycardia settings was determined to be too low around 141 ms. This was changed to > 200 ms. Please follow up with Dr Kohler (appointment to be arranged by their clinic). In addition your potassium levels were 3.2 on admission (3.9 on discharge with supplementation given). Recommend taking a potassium supplement as prescribed below to help stop arrhythmias occurring in the first place. This should be continuously reassessed by your primary care physician or hogshead hooper. Kind regards, Dr Myke Barcenas Pending Studies at Discharge: No Stand-Alone Forms: My [facility], Smoking Cessation Medications and DC Order Prescriptions: New potassium chloride 20 mEq tablet extended release 20 meq PO DAILY Qty: 14 RF: 0 Continued aspirin [Aspir-Low] 81 mg Tablet,Delayed Release (Dr/Ec) 81 mg PO DAILY RF: 0 nitroglycerin [Nitrostat] 0.4 mg Tablet, Sublingual 0.4 mg sublingual UD PRN (Reason: Chest Pain) RF: 0 furosemide [Lasix] 20 mg tablet 20 mg PO DAILY RF: 0 metoprolol succinate [Toprol XL] 25 mg tablet extended release 24 hr 12.5 mg PO DAILY RF: 0 Brilinta 90 mg tablet 90 mg PO DAILY RF: 0 Discharge Orders: Discharge Order (Routine); Ordered 10/27/19 Ordered By: Myke Gifford/Other Patient Handouts: Hypomagnesemia Dc Admission Data Admit Date/Time: 10/26/19 23:16 Attending Provider: Myke Barcenas Admit Provider: Tim Guadalupe Primary Care Provider: Kashif Poole Other Providers: Tim Guadalupe ; Maximus Madrigal Other Interventions: Discharge Summary Assessment (RN) Last Done: 10/27/19 10:44 DC Date/Time DO NOT enter until pt leaves facility: 10/27/19 16:30 Coding Level of Care Code D/C Day Management >30 mins Diagnoses Defibrillator discharge Z45.02 HFrEF (heart failure with reduced ejection fraction) I50.20 SVT (supraventricular tachycardia) I47.1 Rapid atrial fibrillation I48.91 Hypotension I95.9 Hypotension type: unspecified hypotension type Back pain M54.9
--- NOTE | 2019-10-27 17:46 | Electrocardiogram Report ---
Test Reason : Blood Pressure : / mmHG Vent. Rate : 117 BPM Atrial Rate : 117 BPM P-R Int : 176 ms QRS Dur : 146 ms QT Int : 348 ms P-R-T Axes : 048 034 -29 degrees QTc Int : 485 ms Probable Sinus tachycardia with frequent Premature ventricular complexes Right bundle branch block Inferior infarct , age undetermined Abnormal ECG No previous ECGs available Confirmed by Maximus Madrigal ([id number]) on 10/27/2019 5:46:14 PM Referred By: REFERRED SELF Confirmed By:Maximus Madrigal
--- NOTE | 2019-10-27 18:02 | Electrocardiogram Report ---
Test Reason : Blood Pressure : / mmHG Vent. Rate : 098 BPM Atrial Rate : 082 BPM P-R Int : 192 ms QRS Dur : 144 ms QT Int : 416 ms P-R-T Axes : -04 066 -04 degrees QTc Int : 531 ms Atrial-paced rhythm with frequent Premature ventricular complexes Right bundle branch block Inferior infarct (cited on or before 26-OCT-2019) Abnormal ECG When compared with ECG of 26-OCT-2019 20:40, Electronic atrial pacemaker has replaced Sinus rhythm Confirmed by Maximus Madrigal ([id number]) on 10/27/2019 6:02:11 PM Referred By: REFERRED SELF Confirmed By:Maximus Madrigal
== END 2019-10-27 16:30 | disposition home or self-care (01) | DRG 641 ==
LOC: ED 20:34 → 2E 23:16 → SUATTDRO 23:16 → 2E 10-27 00:06
DX: I48.91 Unspecified atrial fibrillation; E87.6 Hypokalemia; Z79.82 Long term (current) use of aspirin; F17.200 Nicotine dependence, unspecified, uncomplicated; G89.29 Other chronic pain; I47.1 Supraventricular tachycardia; Z79.899 Other long term (current) drug therapy; M54.5 Low back pain; E86.0 Dehydration; I95.9 Hypotension, unspecified; Z95.810 Presence of automatic (implantable) cardiac defibrillator

== ENCOUNTER 2020-03-12 12:16 | Inpatient (IN) ==
[2020-03-12] MEDS ORDERED: AMIODARONE 360MG / 200ML D5W IV ONE (12:22)
[2020-03-12] MEDS ORDERED: AMIODARONE 150MG / 100ML D5W IV ONE (12:23)
[2020-03-12] MEDS ORDERED: AMIODARONE / D5W 150 MG/100 ML BAG IV STA (12:25)
[2020-03-12] MEDS ORDERED: AMIODARONE / D5W 360 MG/200 ML BAG IV ONE (12:30)
[2020-03-12] MEDS ORDERED: ETOMIDATE 2 MG/ML 20 ML VIAL IV ONE (12:31)
[2020-03-12] MEDS ORDERED: SUCCINYLCHOLINE CHLORIDE 20 MG/ML 10 ML VIAL IV ONE (12:31)
[2020-03-12] MEDS ORDERED: RAPID SEQUENCE INDUCTION BAG ONE (12:36)
[2020-03-12 12:47] LABS: iSTAT Creatinine 3.5 mg/dl (0.6-1.3); iSTAT Ionized Calcium 1.05 mmol/l (1.12-1.32)
--- NOTE | 2020-03-12 12:50 | XRay Report ---
XR chest 1V portable CLINICAL HISTORY: sob, dysrhythmia COMPARISON STUDY: Chest radiograph October 26, 2019. FINDINGS: Dual lead left subclavian pacemaker is in place. There is no pneumothorax or pleural effusi on. Moderate cardiomegaly is noted without evidence for pulmonary edema. There is no consolidation. IMPRESSION: 1. No acute findings 2. Moderate cardiomegaly without evidence for pulmonary edema. ACT 112: Negative or not required by law. Electronically signed by: Amaury Stroud M.D. 03/12/2020 12:49 PM
[2020-03-12 12:59] LABS: Alanine Aminotransferase 574 U/L (12-78); Albumin Level 3.6 gm/dl (3.4-5.0); Aspartate Aminotransferase 618 U/L (15-37); BUN Creatinine Ratio 16.1 (10-20); Blood Urea Nitrogen 60 mg/dl (7-18); Calcium 9.2 mg/dl (8.5-10.1); Carbon Dioxide 18 mmol/L (21-32); Chloride 100 mmol/L (98-107); Est GFR (African American) 18.2; Est GFR (Non-African American) 15.7; Glucose 140 mg/dl (70-99); Lipase 172 U/L (73-393); Magnesium 3.2 mg/dl (1.8-2.4); Potassium 5.1 mmol/L (3.5-5.1); Sodium 137 mmol/L (136-145)
[2020-03-12 13:05] LABS: Basophils # (auto) 0.02 K/uL (0-0.2); Basophils % (auto) 0.1 %; Eosinophils # (auto) 0.01 K/uL (0-0.5); Eosinophils % (auto) 0.1 %; Hematocrit (blood only) 49.6 % (42-52); Hemoglobin 16.1 g/dL (14.0-18.0); INR 1.7 (0.9-1.1); Immature Granulocytes # (auto) 0.19 K/uL (0.00-0.02); Immature Granulocytes % (auto) 1.1 %; Lymphocytes # (auto) 0.76 K/uL (1.2-3.4); Lymphocytes % (auto) 4.4 %; Mean Corpuscular Hemoglobin 32.9 pg (25-34); Mean Corpuscular Hgb Conc 32.5 g/dL (32-36); Mean Corpuscular Volume 101.4 fL (80-100); Mean Platelet Volume 10.5 fL (7.4-10.4); Monocytes # (auto) 1.81 K/uL (0.11-0.59); Monocytes % (auto) 10.6 %; Neutrophils # (auto) 14.35 K/uL (1.4-6.5); Neutrophils % (auto) 83.7 %; Nucleated RBC # (auto) 0.13 K/uL (0-0); Nucleated RBC % (auto) 0.7 %; Platelet Count 175 K/uL (130-400); Prothrombin Time 17.7 Seconds (9.0-12.0); RDW Coefficient of Variation 13.7 % (11.5-14.5); RDW Standard Deviation 51.1 fL (36.4-46.3); Red Blood Count 4.89 M/uL (4.7-6.1); White Blood Count 17.14 K/uL (4.8-10.8)
[2020-03-12 13:12] LABS: Albumin Globulin Ratio 0.9 (0.9-2); Alkaline Phosphatase 65 U/L (45-117); Bilirubin,Total 3.1 mg/dl (0.2-1); Total Protein 7.6 gm/dl (6.4-8.2); Troponin I 0.176 ng/ml (0-0.045)
[2020-03-12 13:14] LABS: NT Pro B Type Natriuretic Pept > 35000 pg/ml (0-900)
[2020-03-12] MEDS ORDERED: SODIUM CHLORIDE 0.9% 1000ML 1,000 ML IV SCH (13:15)
[2020-03-12 13:28] LABS: T4 Free Thyroxine 1.79 ng/dl (0.8-1.6)
--- NOTE | 2020-03-12 14:07 | History & Physical Report ---
Date of Service March 12, 2020 Assessment & Plan (1) Goals of care, counseling/discussion: DNR/DNI, not for vasopressors or aggressive management. Consult palliative care for further discussions as he is considering turning of his ICD. (2) Ventricular tachycardia: Continue amiodarone IV as per Dr Falcon recommendations, will defer IV lidocaine to cardiology Continue his usual metoprolol dosing with hold parameters Appreciate cardiology management of this. Discussed with Dr Falcon and Dr Snyder in the ER. (3) Nausea and vomiting: CT A/P w/o IV contrast -concerning for mild gallbladder distention with possible minimal infiltration adjacent to the gallbladder neck. In addition 3 mm calcification within the pancreatic head possibly reflecting, bile duct calculus. We discussed further investigations/management of this with MRCP however definitive management would require ERCP therefore the patient declines further work-up of this even if this means he would . Lipase WNL (4) Elevated LFTs: Suspected shock liver in setting of hypoperfusion with wide complex tachycardia. CT A/P performed after he was transferred to PCU concerning for possible choledocholithiasis vs cholecystitis vs cholangitis. Discussed further intervention/investigations with MRCP/ERCP, GI consult - declines all of these. He is willing to have IV antibiotics to potentially treat any infection. Start renally dosed Zosyn to cover both possible GI +/- urine source. Trend LFTs (5) JOSSUE (acute kidney injury): Creatinine 3.71 on admission. Previously 1.2 in October. Suspect pre-renal from cardiac shock and dehydration from nausea and vomiting Continue LR @125 ml/hr - given history of heart failure with reduced ejection fraction will avoid aggressive fluid resuscitation but if hypotensive can give occasional boluses to maintain blood pressure. (6) Acute respiratory failure with hypoxia: No pulmonary edema on CXR. Suspect secondary to hypoperfusion from wide complex tachycardia rather than inherent lung issue. Possible PE but unable to get CT with contrast due to JOSSUE. Aim O2 sats > 94% (7) Ischemic cardiomyopathy: Last known echocardiogram 20 to 25% although it has been as low as 10 to 15% in the past. Continue metoprolol. Unable to take HERMINIO inhibitor or ARB due to hypotension and JOSSUE. (8) HFrEF (heart failure with reduced ejection fraction): Chronic heart failure but he currently appears hypervolemic on exam, labs, and imaging. Hold spironolactone, monitor for worsening respiratory status. No current pulmonary edema on chest x-ray or exam. (9) Coronary artery disease: Continue aspirin, Brilinta, metoprolol. Unclear on admission why is not on a statin. (10) Elevated troponin: Trend overnight. Suspect will continue to increase given wide-complex tachycardia due to demand ischemia. Even if he has had ACS we would be unable to perform cardiac cath due to JOSSUE but also patient unlikely to be amenable to this anyway. Optimize medical management. (11) Paroxysmal atrial fibrillation: Not on long-term anticoagulation although I am unclear on the reasons for this on admission. Currently in atrial paced rhythm (12) Urinary incontinence: Chronic due to previous back injury per patient. Meredith catheter placed to monitor I's and O's (13) DVT prophylaxis: Given elevated INR and unclear why he is not on chronic anticoagulation will defer to chemical prophylaxis for now but likely can be started tomorrow if no intervention is planned. SCDs Admission and Anticipated Discharge Date Admission Date: 03/12/2020 History of Present Illness Chief Complaint: Wide complex tachycardia Primary Care Provider: Kashif Poole Noah Doll is a 69-year-old male who presents to the ER via EMS with shortness of breath and wide-complex tachycardia. He reports having nausea and vomiting for the last 3 days with increased weakness and poor appetite. Today he was having increased shortness of breath with O2 sats in 70s. The patient was noted to have multiple wide-complex tachycardias by EMS prior to arrival. He has an ICD in place which did not fire. He had a pulse therefore he was not defibrillated. In the ER he was given a loading dose of IV amiodarone and started on an IV drip. With regards to his nausea vomiting. He reports no fevers, chills, abdominal pain, dysphagia, odynophagia, hematemesis, melena, bright red blood in stool, diarrhea, constipation. There is reported any having small bowel movements for the past 3 days. He has a longstanding history under Dr. Kohler with coronary artery disease, severe ischemic cardiomyopathy with an ICD in place, multiple sustained ventricular tachycardia's with previous ablations performed at [facility] under Dr Thompson and paroxysmal atrial fibrillation. I know this patient briefly from his previous hospital admission at [facility] in October where his pacemaker/ICD was inappropriately over pacing for atrial fibrillation causing ventricular arrhythmias therefore then causing his ICD to fire appropriately. At that time he was not on amiodarone. The patient wanted to leave as soon as possible on that admission and his pacemaker/ICD settings were changed by Dr. Kohler remotely discussing with the [facility]. The patient reports being started on amiodarone shortly after being discharged and following up with Dr. Kohler. He was not on anticoagulation for his atrial fibrillation at that time, he has previously been on warfarin in the past. Last known cardiac catheterization in February 2019. At that time had a chronic total occlusion of the RCA and severe stenosis of the circumflex providing left to right collateralization. He underwent successful PCI to the left circumflex on that procedure. Allergies Allergy/AdvReac Type Severity Reaction Status Date / Time No Known Allergies Allergy Unverified 03/12/20 13:26 Home Medications Home Medications Medication Instructions Recorded Confirmed Type furosemide [Lasix] 20 mg PO Q2D 10/26/19 03/12/20 History metoprolol succinate [Toprol XL] 12.5 mg PO QAM 10/26/19 03/12/20 History nitroglycerin [Nitrostat] 0.4 mg SUBLINGUAL UD PRN 10/26/19 03/12/20 History amiodarone 200 mg PO QAM 03/12/20 03/12/20 History aspirin 81 mg PO QAM 03/12/20 03/12/20 History spironolactone 25 mg PO DAILY 03/12/20 03/12/20 History ticagrelor [Brilinta] 90 mg PO BID 03/12/20 03/12/20 History Past Med/Surg History Medical History (Updated 03/13/20 @ 10:22 by Myke Barcenas MD) Cardiac defibrillator in place Ejection fraction < 50% HFrEF (heart failure with reduced ejection fraction) Ischemic cardiomyopathy Paroxysmal atrial fibrillation Sustained ventricular tachycardia Social History Smoking Status: Former smoker Tobacco Type: Cigarettes Second Hand Exposure: No; Hx Alcohol Use: No Hx Substance Use: No Preferred Language: [place] Communication Ability: Effective Property Insurance Inspector Required: No Beliefs That Will Affect Care: None Current Living Situation: Alone Feels Safe at Home: Yes Review of Systems Review of Systems: All systems reviewed & are unremarkable except as noted in HPI & below Physical Exam Constitutional: well developed; + not well nourished and no acute distress Eyes: PERRL, conjunctivae normal, anicteric sclerae ENMT: external ear and nose normal, oropharynx normal Neck: trachea midline, no thyromegaly Respiratory: + respiratory distress, + retractions, + uses accessory muscles, + cough (Nonproductive, chronic) and able to speak in complete sentences; no labored breathing, normal respiratory pattern and expiratory phase not prolonged Auscultation: + diminished lung sounds (Bilateral); no crackles, no rales, no rhonchi and no wheezes Cardiovascular: Rate/Rhythm: regular rate and regular rhythm (Occasional skipped beats) Heart Sounds: + murmur; + abnormal S1 and + abnormal S2 (Very quiet) Gastrointestinal (Abdomen): Inspection/Auscultation: abdomen normal to inspection and normal bowel sounds; abdomen not distended Percussion/Palpation: abdomen soft; abdomen nontender, no guarding and abdomen not rigid Musculoskeletal: no cyanosis or clubbing, extremities motor strength 5/5 Skin: no rashes, warm and dry Neurologic: moves all extremities and awake; not confused Psychiatric: A+Ox3, euthymic affect Genitourinary: no CVA tenderness Lymphatic: no cervical or axillary lymphadenopathy Results & Data Results & Data ([facility]) Vital Signs (Past 12 Hours) Vital Signs Temp Pulse Pulse Resp BP Pulse Ox 03/12/20 14:01 80 21 96/70 L 98 03/12/20 13:47 80 26 H 111/76 94 03/12/20 13:31 80 19 93/73 L 99 03/12/20 13:10 80 17 98/75 L 96 03/12/20 13:08 80 21 124/87 100 03/12/20 12:54 80 28 H 111/73 94 03/12/20 12:50 37.1 C 155 H 149 H 36 H 03/12/20 12:40 117 H 30 H 03/12/20 12:31 118 H 31 H 80 L 03/12/20 12:25 120 H 34 H 77 L Diagnostic Findings XR chest 1V portable IMPRESSION: 1. No acute findings 2. Moderate cardiomegaly without evidence for pulmonary edema. CT OF THE ABDOMEN AND PELVIS WITHOUT CONTRAST IMPRESSION: 1. Mild gallbladder distention with possible minimal infiltration adjacent to the gallbladder neck. A right upper quadrant ultrasound is recommended for further evaluation. 2. 3 mm calcification within the pancreatic head. This could reflect a common bile duct calculus or a parenchymal calcification. No biliary ductal dilatation. Correlation with liver function tests is recommended. 3. Normal appendix. No bowel obstruction. Large amount of stool within the rectum. 4. 3 cm infrarenal abdominal aortic aneurysm. 5. Moderate cardiomegaly. ECG Indication: tachycardia Rate (beats per minute): 222 Rhythm: v-tach (Wide-complex tachycardia) Comparison ECG Date: from (October 27, 2019) Change: the following changes noted (Wide-complex tachycardia) Code Status & VTE Plan Code Status Patient very clear on DNR/DNI however also expresses a wish to possibly turn off his ICD and declines any aggressive measures VTE Prophylaxis Plan VTE Prophylaxis will be ordered: Yes Critical Care Time Prolonged Care Time Prolonged Care Time: Yes Total Prolonged Care Time: 105 Time spent reviewing old records, discussion with cardiology and ER physician, goals of care discussion with the patient, multiple reassessments throughout the day. PG Care Time/CCT Total # of Minutes Spent Total Time Spent with Patient: Total time spent is greater than 50% in coordination of care (as documented) at patient's floor/unit and/or counseling patient: Prolonged Care Time Prolonged Care Time: Yes Total Prolonged Care Time: 105 Coding Level of Care Code 56912 Initial Inpt Care Lvl 3 Diagnoses Goals of care, counseling/discussion Z71.89 Ventricular tachycardia I47.2 Nausea and vomiting R11.2 Elevated LFTs R79.89 JOSSUE (acute kidney injury) N17.9 Acute respiratory failure with hypoxia J96.01 Ischemic cardiomyopathy I25.5 HFrEF (heart failure with reduced ejection fraction) I50.20 Coronary artery disease I25.10 Elevated troponin R79.89 Paroxysmal atrial fibrillation I48.0 Urinary incontinence R32 DVT prophylaxis Z29.9 Additional Codes Prolonged Care Time - Prolonged Care Time: Yes ([id number])
--- NOTE | 2020-03-12 14:17 | Emergency Department Note ---
History of Present Illness General Chief complaint: Shortness of Breath/Dyspnea Time Seen by Provider: 03/12/20 12:20 Source: patient and EMS Mode of arrival: EMS Limitations: no limitations History of Present Illness Provider complaint: Shortness of breath, weakness Associated symptoms: + loss of appetite, + malaise, + shortness of breath and + weakness; no chest pain Treatments prior to arrival: none This is a 69-year-old male with extensive past medical history brought in from home by EMS due to increased shortness of breath. EMS noted the patient's sats were in the 70s on room air on arrival. Patient does not wear home oxygen. Patient placed on a nasal cannula which improved to the 80s, and then nasal cannula which brought him up further, except he stated he could not handle it and he was returned to nasal cannula. Patient was noted to have a wide-complex tachycardia by EMS prior to arrival. Patient was not defibrillated, no other medications were given prehospital. An IV was established. On arrival here patient complained of increased shortness of breath today. States he does still smoke. Confirm that he does not use home oxygen or any other breathing treatments. Patient states he has felt weak over the last 3 days and had a poor appetite. Patient denies vomiting or diarrhea. Patient denies noticing any change in his urine. Patient states "I have got a real bad heart". Patient states he does have a pacer/defibrillator. Patient states it was last changed approximately 1 year ago. Patient states he typically follows with Dr. Kohler, cardiology, and [facility]. Patient denies any fevers or chills, denies any recent sick contacts. Denies any exposure to any known coronavirus positive individuals. Patient states his girlfriend 1 month ago. Pt seen during a time of high acuity and national emergency pandemic while wearing PPE. Home Medications Home Medications Medication Instructions Recorded Confirmed Type furosemide [Lasix] 20 mg PO Q2D 10/26/19 03/12/20 History metoprolol succinate [Toprol XL] 12.5 mg PO QAM 10/26/19 03/12/20 History nitroglycerin [Nitrostat] 0.4 mg SUBLINGUAL UD PRN 10/26/19 03/12/20 History amiodarone 200 mg PO QAM 03/12/20 03/12/20 History aspirin 81 mg PO QAM 03/12/20 03/12/20 History spironolactone 25 mg PO DAILY 03/12/20 03/12/20 History ticagrelor [Brilinta] 90 mg PO BID 03/12/20 03/12/20 History Allergies Allergy/AdvReac Type Severity Reaction Status Date / Time No Known Allergies Allergy Unverified 03/12/20 13:26 Past Med/Surg History Medical History Cardiac defibrillator in place Ejection fraction < 50% HFrEF (heart failure with reduced ejection fraction) Social History Smoking Status: Former smoker Tobacco Type: Cigarettes Second Hand Exposure: No; Hx Alcohol Use: No Hx Substance Use: No Preferred Language: Afghan Communication Ability: Effective Roustabout Supervisor Required: No Beliefs That Will Affect Care: None Current Living Situation: Alone Feels Safe at Home: Yes Review of Systems See HPI for pertinent positives & negatives. and A total of 10 systems reviewed and were otherwise negative Physical Exam Vital Signs Vital Signs - 24 hr 03/12/20 12:25 03/12/20 12:31 03/12/20 12:40 Temperature Temperature Source Pulse Rate 120 H 118 H 117 H Pulse Rate [Apical] Pulse Rate from SpO2 Sensor 53 L 96 H Pulse Rhythm Pulse Strength Respiratory Rate 34 H 31 H 30 H Respiratory Effort / Characteristics Respiratory Depth Respiratory Pattern Blood Pressure Blood Pressure Mean Blood Pressure Position Pulse Oximetry 77 L 80 L Oxygen Delivery Method Oxygen Flow Rate Fraction of Inspired Oxygen Sepsis Recent Fever Within 48 Hours Sepsis New/Unexplained Change in Mental Status Sepsis Action Taken by Nursing 03/12/20 12:50 03/12/20 12:54 03/12/20 13:08 Temperature 37.1 C Temperature Source Rectal Pulse Rate 155 H 80 80 Pulse Rate [Apical] 149 H Pulse Rate from SpO2 Sensor 80 Pulse Rhythm Irregular Pulse Strength Weak Respiratory Rate 36 H 28 H 21 Respiratory Effort / Characteristics Accessory Muscle Use Grunting Retracting Respiratory Depth Retractive Respiratory Pattern Irregular Blood Pressure 111/73 124/87 Blood Pressure Mean 77 102 Blood Pressure Position Lying Pulse Oximetry 94 100 Oxygen Delivery Method High Flow Nasal Cannula Other Oxygen Flow Rate 40 50 Fraction of Inspired Oxygen 100 Sepsis Recent Fever Within 48 Hours No Sepsis New/Unexplained Change in Mental Status No Sepsis Action Taken by Nursing Physician Notified 03/12/20 13:10 03/12/20 13:31 03/12/20 13:47 Temperature Temperature Source Pulse Rate 80 80 80 Pulse Rate [Apical] Pulse Rate from SpO2 Sensor 81 80 81 Pulse Rhythm Pulse Strength Respiratory Rate 17 19 26 H Respiratory Effort / Characteristics Respiratory Depth Respiratory Pattern Blood Pressure 98/75 L 93/73 L 111/76 Blood Pressure Mean 81 86 80 Blood Pressure Position Pulse Oximetry 96 99 94 Oxygen Delivery Method Oxygen Flow Rate Fraction of Inspired Oxygen Sepsis Recent Fever Within 48 Hours Sepsis New/Unexplained Change in Mental Status Sepsis Action Taken by Nursing 03/12/20 14:01 Temperature Temperature Source Pulse Rate 80 Pulse Rate [Apical] Pulse Rate from SpO2 Sensor 82 Pulse Rhythm Pulse Strength Respiratory Rate 21 Respiratory Effort / Characteristics Respiratory Depth Respiratory Pattern Blood Pressure 96/70 L Blood Pressure Mean 74 Blood Pressure Position Pulse Oximetry 98 Oxygen Delivery Method Oxygen Flow Rate Fraction of Inspired Oxygen Sepsis Recent Fever Within 48 Hours Sepsis New/Unexplained Change in Mental Status Sepsis Action Taken by Nursing GENERAL: alert, chronically ill appearing, well nourished, mild distress, non- toxic EYE EXAM: normal conjunctiva, PERRL and EOM's grossly intact OROPHARYNX: no exudate, no erythema, lips, buccal mucosa, and tongue normal and mucous membranes are moist, edentulous NECK: supple, no nuchal rigidity, no adenopathy, non-tender LUNGS: Clear to auscultation. Normal chest wall mechanics, no w/r/r HEART: no murmurs, S1 normal and S2 normal, device noted left superior anterior chest wall, patient noted to be changing through multiple rhythms every couple minutes. ABDOMEN: abdomen soft, non-tender, normo-active bowel sounds, no masses, no rebound or guarding. BACK: Back is symmetrical on inspection and there is no deformity, no midline tenderness, no CVA tenderness. SKIN: no rashes and no bruising UPPER EXTREMITIES: upper extremities are grossly normal. FROM, radial pulse not palpable, will attempt with Doppler. Mild clubbing noted bilaterally. LOWER EXTREMITIES: No pitting edema. FROM, DP/PT pulses not palpable. NEURO EXAM: Normal sensorium, cranial nerves II-XII grossly intact, normal speech, no gross weakness of arms, no gross weakness of legs. Gross sensation intact. Course Administered Medications Amiodarone HCl/Dextrose (Nexterone / D5w) 360 mg in 200 mls @ 16.7 mls/hr IV .[id number] [facility]N Stop: 04/11/20 18:29 Last Infusion: 03/12/20 19:18 Dose: 16.7 mls/hr Documented by: [id number] Cosigned by: [id number] Admin: 03/12/20 19:07 Dose: 16.7 mls/hr Documented by: [id number] Cosigned by: [id number] Lactated Ringer's (Lr) 1,000 mls @ 125 mls/hr IV .Q8H CAITLYN Stop: 04/11/20 14:14 Last Admin: 03/12/20 16:29 Dose: 125 mls/hr Documented by: [id number] Metoprolol Succinate (Toprol Xl) 12.5 mg PO QAM [facility] Stop: 04/11/20 15:59 Last Admin: 03/12/20 17:53 Dose: 12.5 mg Documented by: [id number] Ticagrelor (Brilinta) 90 mg PO BID CA[facility]N Stop: 04/11/20 20:59 Last Admin: 03/12/20 20:16 Dose: 90 mg Documented by: [id number] Discontinued Medications Amiodarone HCl/Dextrose (Nexterone / D5w) Confirm Administered Dose 360 mg IV .STK-MED ONE Stop: 03/12/20 12:23 Last Admin: 03/12/20 13:25 Dose: Not Given Documented by: [id number] Amiodarone HCl/Dextrose (Nexterone / D5w) Confirm Administered Dose 150 mg IV .STK-MED ONE Stop: 03/12/20 12:24 Last Admin: 03/12/20 13:25 Dose: Not Given Documented by: [id number] Etomidate (Amidate) Confirm Administered Dose 40 mg IV .STK-MED ONE Stop: 03/12/20 12:32 Last Admin: 03/12/20 13:24 Dose: Not Given Documented by: [id number] Amiodarone HCl/Dextrose (Nexterone / D5w) 150 mg in 100 mls @ 600 mls/hr IV NOW STA Stop: 03/12/20 12:34 Last Infusion: 03/12/20 15:39 Dose: 0 mls/hr Documented by: [id number] Cosigned by: [id number] Admin: 03/12/20 12:30 Dose: 600 mls/hr Documented by: [id number] Cosigned by: [id number] Amiodarone HCl/Dextrose (Nexterone / D5w) 360 mg in 200 mls @ 33.3 mls/hr IV .Q6H1M ONE Stop: 03/12/20 18:30 Last Infusion: 03/12/20 18:51 Dose: 0 mls/hr Documented by: [id number] Cosigned by: [id number] Infusion: 03/12/20 15:28 Dose: 33.3 mls/hr Documented by: [id number] Cosigned by: [id number] Admin: 03/12/20 12:50 Dose: 33.3 mls/hr Documented by: [id number] Cosigned by: [id number] Sodium Chloride (Nss 1000ml) 1,000 mls @ 125 mls/hr IV .Q8H [facility] Stop: 04/11/20 13:14 Last Infusion: 03/12/20 16:39 Dose: 0 mls/hr Documented by: [id number] Admin: 03/12/20 13:25 Dose: 125 mls/hr Documented by: [id number] Piperacillin Sod/Tazobactam (Sod 3.375 gm/ Dextrose) 115 mls @ 230 mls/hr IV NOW STA; Protocol Stop: 03/12/20 15:57 Last Infusion: 03/12/20 16:53 Dose: 0 mls/hr Documented by: [id number] Admin: 03/12/20 16:23 Dose: 230 mls/hr Documented by: [id number] Polyethylene Glycol (Miralax Powder Packet) 17 gm PO ONE ONE Stop: 03/12/20 16:16 Last Admin: 03/12/20 17:53 Dose: 17 gm Documented by: [id number] Critical Care Time Critical Care Time: Yes Total Critical Care Time: 83 Critical care of 83 min performed to assess and manage high likelihood of life- threatening dysrhythmia, involving labs/imaging performed with assessment to evaluate dysrhythmia diagnosis with frequent reassessment. This time includes bedside time, treatment discussions with patient/family/consultants, documentation time and excludes procedure time. Medical Decision Making Differential Diagnosis Differential diagnoses includes but is not limited to pneumonia, bronchitis, COPD/Asthma exacerbation, pneumothorax, pulmonary embolism, congestive heart failure, acute coronary syndrome Medical Records Attestation: I reviewed the patient's medical records. Home Medications Current Medication List: was personally reviewed by me Laboratory Data Attestation: I reviewed the patient's lab results. Result diagrams: 03/12/20 12:30 03/12/20 18:18 Lab Results 03/12/20 03/12/20 03/12/20 Range/Units 12:30 12:30 12:30 WBC 17.14 H (4.8-10.8) K/uL RBC 4.89 (4.7-6.1) M/uL Hgb 16.1 (14.0-18.0) g/dL POC Hgb (14.0-18.0) g/dl Hct 49.6 (42-52) % POC Hct (42-52) % MCV 101.4 H (80-100) fL MCH 32.9 (25-34) pg MCHC 32.5 (32-36) g/dL RDW Std Deviation 51.1 H (36.4-46.3) fL RDW Coeff of Molly 13.7 (11.5-14.5) % Plt Count 175 (130-400) K/uL MPV 10.5 H (7.4-10.4) fL Immature Gran % (Auto) 1.1 % Neut % (Auto) 83.7 % Lymph % (Auto) 4.4 % [place] % (Auto) 10.6 % Eos % (Auto) 0.1 % Baso % (Auto) 0.1 % Neut # (Auto) 14.35 H (1.4-6.5) K/uL Lymph # (Auto) 0.76 L (1.2-3.4) K/uL [place] # (Auto) 1.81 H (0.11-0.59) K/uL Eos # (Auto) 0.01 (0-0.5) K/uL Baso # (Auto) 0.02 (0-0.2) K/uL Immature Gran # (Auto) 0.19 H (0.00-0.02) K/uL Absolute Nucleated RBC 0.13 H (0-0) K/uL Nucleated RBC % (auto) 0.7 % PT 17.7 H (9.0-12.0) Seconds INR 1.7 H (0.9-1.1) POC Sodium (135-144) mmol/L Sodium 137 (136-145) mmol/L POC Potassium (3.3-5.0) mmol/L Potassium 5.1 (3.5-5.1) mmol/L POC Chloride (101-112) mmol/L Chloride 100 (98-107) mmol/L Carbon Dioxide 18 L (21-32) mmol/L POC Total CO2 (24-31) mmol/L Anion Gap 19.0 H (3-11) POC Anion Gap (16-25) mmol/L POC BUN (7-18) mg/dl BUN 60 H (7-18) mg/dl Creatinine 3.71 H (0.6-1.4) mg/dl POC Creatinine (0.6-1.3) mg/dl Est Cr Clr Drug Dosing Not Reportable Est GFR ( Amer) 18.2 Est GFR (Non-Af Amer) 15.7 BUN/Creatinine Ratio 16.1 (10-20) Glucose 140 H (70-99) mg/dl POC Glucose (other) (70-99) mg/dl Calcium 9.2 (8.5-10.1) mg/dl POC Ioniz Calcium Arturo (1.12-1.32) mmol/l Phosphorus (2.5-4.9) mg/dl Magnesium 3.2 H (1.8-2.4) mg/dl Total Bilirubin 3.1 H (0.2-1) mg/dl AST 618 H (15-37) U/L ALT 574 H (12-78) U/L Alkaline Phosphatase 65 (45-117) U/L Troponin I 0.176 H* (0-0.045) ng/ml NT-Pro-B Natriuret Pep > 31542 H (0-900) pg/ml Total Protein 7.6 (6.4-8.2) gm/dl Albumin 3.6 (3.4-5.0) gm/dl Globulin 4.0 (2.5-4.0) gm/dl Albumin/Globulin Ratio 0.9 (0.9-2) Lipase 172 (73-393) U/L TSH 7.360 H (0.300-4.500) uIu/ml Free T4 1.79 H (0.8-1.6) ng/dl 03/12/20 03/12/20 Range/Units 12:30 12:33 WBC (4.8-10.8) K/uL RBC (4.7-6.1) M/uL Hgb (14.0-18.0) g/dL POC Hgb 17.0 (14.0-18.0) g/dl Hct (42-52) % POC Hct 50 (42-52) % MCV (80-100) fL MCH (25-34) pg MCHC (32-36) g/dL RDW Std Deviation (36.4-46.3) fL RDW Coeff of Molly (11.5-14.5) % Plt Count (130-400) K/uL MPV (7.4-10.4) fL Immature Gran % (Auto) % Neut % (Auto) % Lymph % (Auto) % [place] % (Auto) % Eos % (Auto) % Baso % (Auto) % Neut # (Auto) (1.4-6.5) K/uL Lymph # (Auto) (1.2-3.4) K/uL [place] # (Auto) (0.11-0.59) K/uL Eos # (Auto) (0-0.5) K/uL Baso # (Auto) (0-0.2) K/uL Immature Gran # (Auto) (0.00-0.02) K/uL Absolute Nucleated RBC (0-0) K/uL Nucleated RBC % (auto) % PT (9.0-12.0) Seconds INR (0.9-1.1) POC Sodium 135 (135-144) mmol/L Sodium (136-145) mmol/L POC Potassium 5.0 (3.3-5.0) mmol/L Potassium (3.5-5.1) mmol/L POC Chloride 101 (101-112) mmol/L Chloride (98-107) mmol/L Carbon Dioxide (21-32) mmol/L POC Total CO2 17 L (24-31) mmol/L Anion Gap (3-11) POC Anion Gap 23.0 (16-25) mmol/L POC BUN 63 H (7-18) mg/dl BUN (7-18) mg/dl Creatinine (0.6-1.4) mg/dl POC Creatinine 3.5 H (0.6-1.3) mg/dl Est Cr Clr Drug Dosing Est GFR ( Amer) Est GFR (Non-Af Amer) BUN/Creatinine Ratio (10-20) Glucose (70-99) mg/dl POC Glucose (other) 140 H (70-99) mg/dl Calcium (8.5-10.1) mg/dl POC Ioniz Calcium Arturo 1.05 L (1.12-1.32) mmol/l Phosphorus 7.4 H (2.5-4.9) mg/dl Magnesium (1.8-2.4) mg/dl Total Bilirubin (0.2-1) mg/dl AST (15-37) U/L ALT (12-78) U/L Alkaline Phosphatase (45-117) U/L Troponin I (0-0.045) ng/ml NT-Pro-B Natriuret Pep (0-900) pg/ml Total Protein (6.4-8.2) gm/dl Albumin (3.4-5.0) gm/dl Globulin (2.5-4.0) gm/dl Albumin/Globulin Ratio (0.9-2) Lipase (73-393) U/L TSH (0.300-4.500) uIu/ml Free T4 (0.8-1.6) ng/dl Imaging Data Radiologist's Impression: XR chest 1V portable CLINICAL HISTORY: sob, dysrhythmia COMPARISON STUDY: Chest radiograph October 26, 2019. FINDINGS: Dual lead left subclavian pacemaker is in place. There is no pneumothorax or pleural effusion. Moderate cardiomegaly is noted without evidence for pulmonary edema. There is no consolidation. IMPRESSION: 1. No acute findings 2. Moderate cardiomegaly without evidence for pulmonary edema. ACT 112: Negative or not required by law. Electronically signed by: Amaury Stroud M.D. 03/12/2020 12:49 PM ECG Data Attestation: I personally reviewed and interpreted this ECG as follows: Indication: + SOB/dyspnea Rate (beats per minute): 222 Rhythm: + other (paced) ECG Intervals/blocks: + IVCD ECG [place]: + Left axis deviation Additional Comments: Second EKG at 1251 showed a paced rhythm at 80 with a first-degree AV block, right bundle branch block, normal axis, T wave inversions noted in V2 through V5 and in leads III Third EKG performed at 1306 with a rate of 112 appears ventricularly paced with a wide QRS and prolonged QTC, left axis Fourth EKG at 1307 showed a paced rhythm at 80 with a first-degree AV block, right bundle branch block, normal axis, QTC of 479, T wave inversions again noted Blood Pressure Blood Pressure Findings: Normal blood pressure ABEL Narrative Is a 69-year-old male brought in by EMS due to multiple dysrhythmia noted prehospital after patient called EMS for shortness of breath. EMS reports patient's oxygen saturations were in the 70s on room air on their arrival, only come up to the 80s on nasal cannula, however patient could not tolerate nonrebreather. During transport patient was noted to have a rapid narrow complex as well as an intermittent rapid wide-complex tachycardia. Patient remained awake and alert the entire time. On arrival here, patient was noted to the same thing and continued to rapidly cycle through a rapid narrow complex tachycardia that appeared to be atrial fibrillation and then a rapid wide-complex tachycardia consistent with V. tach, and during these transitions was intermittently being paced. Patient was given amnio bolus and drip on arrival. Patient does take amnio normally. We had difficulty obtaining a blood pressure or finding a pulse on the patient despite him continuing to be awake and alert force. Patient complained of shortness of breath with nasal cannula and with oxygen mask, so RT was contacted to place the patient on high flow nasal cannula as he stated he could not tolerate anything over his mouth. Patient stated he has significant cardiac history, and well IVs were established and labs are being drawn, I did briefly review the patient's recent admission here. Patient was significant cardiac dysfunction including ischemic cardiomyopathy and an ejection fraction of 10 to 15% as noted in October. At that time patient had also been noticed to have rapid atrial fibrillation as well as intermittent V. tach at on review of EMR these episodes appeared similar to wha t was happening in front of us today. I contacted social secretary to begin trying to obtain outpatient records from patient's top polisher Dr. Kohler. I then contacted Dr. Falcon who is on-call for Thursday cardiology to help with management of the patient's dysrhythmias as while on the amiodarone he continued to cycle through these different rhythms. When patient would go into the V. tach he would complain of feeling warm and more short of breath. Upon Dr. Falcon's arrival, patient had an episode of unresponsiveness where his eyes rolled back, he showed a posturing-like movement, and I quickly began to jaw thrust the patient to maintain his airway. Within 5 seconds patient had a few myoclonic je rks and then opened his eyes and began talking again. It is unclear if this was a seizure due to hypoxia from his dysrhythmia. After this resolved it was noted patient was down to a paced rhythm in the 80s and maintain this. Patient's initial byhoh-wi-lfip labs revealed a new creatinine of 3.5, given his baseline was 1.4 prior. Patient's potassium was 5. After the patient changed to a paced rhythm in the 80s we were finally able to obtain a blood pressure. I asked the nursing staff to use the hand-held Doppler to find pulses and jluis these on his bilateral wrists and bilateral feet. Dr. Falcon was in agreement with management so far, and in front of staff and Dr. Falcon at bedside patient stated that he was DNR and DNI. It is unclear if this is part of a grief reaction as patient states he lost his girlfriend approximately a month ago. Has additional lab work rolled back patient was also noted to have elevated transaminases, and a leukocytosis. It is unclear if the leukocytosis is reactive or if there is an evolving occult infection. Patient stated over the last 3 days he felt weak and had poor p.o. intake, which may have contributed to his renal failure and thus pushed him into these dysrhythmias. Patient states he has been compliant with his medications despite not feeling well. Patient denied any other fevers or focal symptoms to suggest evolving infection. We did use the [place] device at bedside to interrogate the pacemaker and this was transmitted. and stated he would watch for these results and discuss with Dr. Marino who is previously evaluated the patient's pacemaker. Patient kept aware of all results. Patient sister did arrive and was eventually brought to bedside once the patient was felt to be more stable. Case discussed with the hospitalist for additional inpatient management. During patient's initial evaluation I did not leave a bedside for the first 53 minutes, and was frequently reassessing the patient after this due to his critical nature and unstable rhythms. Patient continued to state he wished to be DNR/DNI. Patient was updated on abnormal labs. Chest x-ray was reassuring despite cardiomegaly. An order was placed for continuous cardiac monitoring. The monitor shows a rate of 142 with atrial fibrillation rhythm. Impression & Plan Ventricular tachycardia, Rapid atrial fibrillation, Elevated troponin, Elevated LFTs, JOSSUE (acute kidney injury), Transient alteration of awareness Discharge Plan Visit Data *Final* Discharge Date/Time: 03/12/20 14:43 Chief Complaint: Shortness of Breath/Dyspnea ED Provider: Caridad Eden Discharge Problem: Ventricular tachycardia, Rapid atrial fibrillation, Elevated troponin, Elevated LFTs, JOSSUE (acute kidney injury), Transient alteration of awareness Patient Disposition: Admitted As Inpatient Discharge Instructions Interventions: ED Discharge Assessment Last Done: 03/12/20 14:43
--- NOTE | 2020-03-12 14:28 | Cardiology Consultation ---
Date of Consultation March 12, 2020 Assessment & Plan (1) Ventricular tachycardia: -the patient carries a history of paroxysmal ventricular tachycardia. -this rhythm was frequent at the time of his presentation, however, greatly improved on intravenous amiodarone. -would continue intravenous amiodarone. -could consider addition of intravenous lidocaine if necessary. -Dr. Snyder to assume care tomorrow. (2) Rapid atrial fibrillation: -lead to inappropriate therapies during his hospitalization October 2019. -amiodarone as above. -does not take long-term anticoagulation. (3) Elevated troponin: -mild elevation likely related to rapid atrial fibrillation and his ventricular tachycardia. -would trend cardiac biomarkers. -resume metoprolol tartrate when able. (4) Coronary artery disease: -complex history, details unknown (5) Ischemic cardiomyopathy: -patient reports an ejection fraction of 25%. -this is supported by his medical therapies. (6) Cardiac defibrillator in place: -interrogation today noted ventricular tachycardia without therapies delivered. -Dr. Snyder will manage. History of Present Illness History of Present Illness Mr. Doll is a 69-year-old male presents to the emergency room today complaining of shortness of breath. The patient was noted to be in both atrial and ventricular dysrhythmias and therefore, this consultation was ordered. Of note, the patient typically follows with Dr. Kohler in [place]. The patient claims he was in his usual state of health until approximately 4 days prior to presentation. At that time, he began to feel dehydrated. He had episodes of shortness of breath and an noticed a concurrent sensation of feeling warm. When he woke today, patient was noticing shortness of breath while at rest. He called 911 and was brought to the emergency room for further care. The initial ECG which was performed in the field noted ventricular tachycardia as to the 1st tracing in our emergency room. While in ventricular tachycardia, the patient complained of shortness of breath and feeling warm. He was started on intravenous amiodarone with a bolus followed by a drip. The patient had witnessed seizure activity apparently during an episode of ventricular tachycardia. At no time did the patient have a defibrillator discharge. The patient does carry history of paroxysmal ventricular tachycardia. He has also been diagnosed with paroxysmal atrial fibrillation. Has been on off amiodarone since 2011. The patient also carries a history of coronary artery disease. His initial [place] happened in 2000 and underwent a PCI at [facility]. He explains that 10 months later, he had another acute coronary syndrome in 2 more stents were placed in that same artery (details unknown). He had another episode of acute coronary syndrome in February 2019 and underwent a repeat cardiac catheterization and had several more SANJEEV placed. He reports his left ventricular ejection fract ion to be 25%. Currently, patient is resting comfortably in his bed in the emergency room. His dysrhythmias have greatly diminished since starting intravenous amiodarone. Past medical surgical history 1. Coronary artery disease-see above 2. Ischemic cardiomyopathy-25% 3. Chronic systolic CHF 4. Paroxysmal ventricular tachycardia. 5. Paroxysmal atrial fibrillation. 6. History of radiofrequency ablation. 7. COPD 8. Chronic renal failure 9. Chronic low back pain 10. DNR Social history , lives alone His girlfriend approximately 4 months ago. Smokes 1 pack of cigarettes daily Occasional alcohol Family history Noncontributory Review of systems A 10 point review systems was undertaken and negative except for that described above. Allergies Allergy/AdvReac Type Severity Reaction Status Date / Time No Known Allergies Allergy Unverified 03/12/20 13:26 Home Medications Home Medications Medication Instructions Recorded Confirmed Type furosemide [Lasix] 20 mg PO Q2D 10/26/19 03/12/20 History metoprolol succinate [Toprol XL] 12.5 mg PO QAM 10/26/19 03/12/20 History nitroglycerin [Nitrostat] 0.4 mg SUBLINGUAL UD PRN 10/26/19 03/12/20 History amiodarone 200 mg PO QAM 03/12/20 03/12/20 History aspirin 81 mg PO QAM 03/12/20 03/12/20 History spironolactone 25 mg PO DAILY 03/12/20 03/12/20 History ticagrelor [Brilinta] 90 mg PO BID 03/12/20 03/12/20 History Patient History Medical History (Updated 03/12/20 @ 14:22 by Carlos Manuel Falcon MD) Cardiac defibrillator in place Ejection fraction < 50% HFrEF (heart failure with reduced ejection fraction) Social History Smoking Status: Current every day smoker Tobacco Type: Cigarettes Hx Alcohol Use: No Hx Substance Use: No Preferred Language: Namibian Communication Ability: Effective [employer] Clerk Required: No Beliefs That Will Affect Care: None Current Living Situation: Family Feels Safe at Home: Yes Physical Exam Physical Exam: In general this is a well-developed well-nourished white male in no acute distress. HEENT exam is negative. Neck is supple with full carotid upstrokes. There are no carotid bruits. Jugular is pressure is flat at 90 degrees. No thyromegaly. Cardiovascular exam reveals a regular rhythm with distant heart sounds. No obvious murmurs. No S3. Lungs are clear without rales, rhonchi or wheezes. Chest reveals a palpable device in the left subclavicular region. Abdomen is soft without bruits. Extremities reveal intact radial artery pulses bilaterally. There is no peripheral edema. Results & Data ([facility]) Vital Signs (Past 12 Hours) Vital Signs Temp Pulse Pulse Resp BP Pulse Ox 03/12/20 14:01 80 21 96/70 L 98 03/12/20 13:47 80 26 H 111/76 94 03/12/20 13:31 80 19 93/73 L 99 03/12/20 13:10 80 17 98/75 L 96 03/12/20 13:08 80 21 124/87 100 03/12/20 12:54 80 28 H 111/73 94 03/12/20 12:50 37.1 C 155 H 149 H 36 H 03/12/20 12:40 117 H 30 H 03/12/20 12:31 118 H 31 H 80 L 03/12/20 12:25 120 H 34 H 77 L Laboratory Results CBC notes hemoglobin 16.1, hematocrit 17.0, white count 17.14, platelet count 832132. Electrolytes note sodium 135, potassium 5.0, chloride 101, bicarb 17, BUN 63, creatinine 3.5, glucose of 140. Troponin I level was elevated 0.176. TSH is elevated 7.36. BNP is greater than 35,000. Diagnostic Findings EKG performed in the field notes ventricular tachycardia. First tracing in our institution confirms ventricular tachycardia. The next tracing notes in atrial paced rhythm with right bundle branch block and inferolateral T-wave abnormality. Final tracing is ventricularly paced. Chest x-ray shows cardiomegaly but no failure. PG Care Time/CCT Total # of Minutes Spent Total Time Spent with Patient: Total time spent is greater than 50% in coordination of care (as documented) at patient's floor/unit and/or counseling patient: Coding Level of Care Code 46223 Initial Inpt Care Lvl 3 Diagnoses Ventricular tachycardia I47.2 Rapid atrial fibrillation I48.91 Elevated troponin R79.89 Coronary artery disease I25.10 Ischemic cardiomyopathy I25.[address] Z95.810
--- NOTE | 2020-03-12 14:40 | CT Scan Report ---
CT OF THE ABDOMEN AND PELVIS WITHOUT CONTRAST CLINICAL HISTORY: Nausea and vomiting. COMPARISON STUDY: No previous studies for comparison. TECHNIQUE: Axial images of the abdomen and pelvis were obtained without IV contrast. Images were revi ewed in the axial, sagittal, and coronal planes. Automated exposure control was utilized for the ko dy. A dose lowering technique was utilized adhering to the principles of ALARA. FINDINGS: Pacer leads are partially imaged. Moderate cardiomegaly is noted. There is emphysema within the lower lungs. Evaluation of the abdomen and pelvis is suboptimal on this unenhanced examination. A few subcentimeter hypodense hepatic lesions are suboptimally assessed on this exam but are probably benign. There is no biliary or pancreatic ductal dilatation. Note is made of a 3 mm calcification wi thin the pancreatic head on image 126 of 411. Unenhanced images of the spleen and adrenal glands are unremarkable. Water attenuation bilateral renal lesions are suboptimally assessed on this unenhanced exam but favor cysts. There is no hydronephrosis. There is an equivocal right renal calculus. There a re no ureteral calculi. The gallbladder is mildly distended. There may be minimal infiltration adjace nt to the gallbladder neck. There is no evidence for a bowel obstruction. The appendix is normal. A l arge amount of stool within the rectum is noted. The prostate is mildly enlarged. No abdominal or pel jonathan lymphadenopathy is present. There are no suspicious osseous lesions. Postoperative findings withi n the lumbar spine are incidentally noted. There is mild aneurysmal dilatation of the infrarenal abdo ventura aorta, measuring 3 cm. IMPRESSION: 1. Mild gallbladder distention with possible minimal infiltration adjacent to the gallbladder neck. A right upper quadrant ultrasound is recommended for further evaluation. 2. 3 mm calcification within the pancreatic head. This could reflect a common bile duct calculus or a parenchymal calcification. No biliary ductal dilatation. Correlation with liver function tests is re commended. 3. Normal appendix. No bowel obstruction. Large amount of stool within the rectum. 4. 3 cm infrarenal abdominal aortic aneurysm. 5. Moderate cardiomegaly. ACT 112: Negative or not required by law. Electronically signed by: Amaury Stroud M.D. 03/12/2020 2:39 PM
[2020-03-12] MEDS ORDERED: NITROGLYCERIN SL 0.4 MG/TAB TAB SL PRN (15:27)
[2020-03-12] MEDS ORDERED: PIPERACILLIN/TAZOBACTAM 3.375 GM in DEXTROSE 5% 100 ML IV STA (15:28)
[2020-03-12] MEDS ORDERED: PROMETHAZINE HCL 6.25 MG in SODIUM CHLORIDE 0.9% 50 ML IV PRN (15:30)
--- NOTE | 2020-03-12 15:31 | Electrocardiogram Report ---
Test Reason : Blood Pressure : / mmHG Vent. Rate : 222 BPM Atrial Rate : 118 BPM P-R Int : 000 ms QRS Dur : 162 ms QT Int : 276 ms P-R-T Axes : 079 -74 109 degrees QTc Int : 530 ms Wide QRS tachycardia Left axis deviation Non-specific intra-ventricular conduction block Inferior infarct (cited on or before 26-OCT-2019) Abnormal ECG When compared with ECG of 27-OCT-2019 06:48, Significant changes have occurred Confirmed by Carlos Manuel Falcon ([id number]) on 03/12/2020 3:31:44 PM Referred By: Confirmed By:Carlos Manuel Falcon
[2020-03-12] MEDS ORDERED: POLYETHYLENE (MIRALAX) 17 GM PACK PO PRN (15:57)
[2020-03-12] MEDS ORDERED: POLYETHYLENE (MIRALAX) 17 GM PACK PO ONE (16:15)
[2020-03-12] MEDS: LACTATED RINGER'S 1,000 ML IV SCH (16:29)
[2020-03-12] MEDS ORDERED: PIPERACILL/TAZOBAC CONSULT ACTIVE PRN (17:20)
[2020-03-12] MEDS: METOPROLOL SUCC 25MG EXT REL TAB PO SCH (17:53)
[2020-03-12 18:15] LABS: Appearance Urine Turbid (Clear); Bacteria Urine Automated 1+ (Negative); Blood Urine 3+ (Negative); Color Urine Dark Yellow; Epithelial Cell Urine Auto >30 /lpf (0-5); Glucose Urine UA Negative (Negative); Ketones Urine Trace (Negative); Leukocyte Esterase Urine Trace (Negative); Nitrite Urine Positive (Negative); Protein Urine 1+ (Negative); RBC Urine Automated 0-4 /hpf (0-4); Specific Gravity Urine 1.029 (1.000-1.030); Urobilinogen Urine Negative (Negative)
[2020-03-12 18:21] LABS: Bilirubin Urine Negative (Negative); Ictotest Urine Negative (Negative)
[2020-03-12 18:44] LABS: Calcium 8.2 mg/dl (8.5-10.1); Creatinine Clr Calc Pharmacy 20.8 ml/min
[2020-03-12 18:53] LABS: Troponin I 0.248 ng/ml (0-0.045)
[2020-03-12] MEDS: AMIODARONE / D5W 360 MG/200 ML BAG IV SCH (19:07)
[2020-03-12] MEDS: TICAGRELOR 90 MG TAB PO SCH (20:16)
[2020-03-12 20:26] LABS: Albumin Level 3.1 gm/dl (3.4-5.0); Bilirubin Direct 0.7 mg/dl (0-0.2); Bilirubin,Total 1.4 mg/dl (0.2-1); Total Protein 6.3 gm/dl (6.4-8.2)
[2020-03-12] MEDS: PIPERACILLIN/TAZOBACTAM 3.375 GM in DEXTROSE 5% 100 ML IV SCH (21:56)
[2020-03-13] MEDS ORDERED: PIPERACILLIN/TAZOBACTAM 3.375 GM in DEXTROSE 5% 100 ML IV SCH
[2020-03-13] MEDS: LACTATED RINGER'S 1,000 ML IV SCH ×2 (03:38→13:46)
[2020-03-13] MEDS: AMIODARONE / D5W 360 MG/200 ML BAG IV SCH (05:01)
[2020-03-13] MEDS: PIPERACILLIN/TAZOBACTAM 3.375 GM in DEXTROSE 5% 100 ML IV SCH ×2 (05:36→13:46)
[2020-03-13] MEDS ORDERED: COUGH DROP (SUGAR FREE) LOZ 24 LOZ/1 BOX BUCCAL ONE (05:43)
[2020-03-13 07:14] LABS: INR 1.9 (0.9-1.1); Partial Thromboplastin Time 28.6 Seconds (21.0-31.0); Prothrombin Time 19.8 Seconds (9.0-12.0)
[2020-03-13 07:30] LABS: Hematocrit (blood only) 39.3 % (42-52); Mean Corpuscular Hemoglobin 31.8 pg (25-34); Mean Corpuscular Hgb Conc 33.1 g/dL (32-36); Mean Corpuscular Volume 96.1 fL (80-100); Mean Platelet Volume 10.6 fL (7.4-10.4); Nucleated RBC # (auto) 0.09 K/uL (0-0); Nucleated RBC % (auto) 0.6 %; Platelet Count 113 K/uL (130-400); RDW Coefficient of Variation 13.3 % (11.5-14.5); RDW Standard Deviation 46.2 fL (36.4-46.3); Red Blood Count 4.09 M/uL (4.7-6.1); White Blood Count 16.14 K/uL (4.8-10.8)
[2020-03-13 07:32] LABS: BUN Creatinine Ratio 23.4 (10-20); Est GFR (African American) 28.8; Est GFR (Non-African American) 24.9; Potassium 4.4 mmol/L (3.5-5.1)
[2020-03-13 07:43] LABS: Basophils # (auto) 0.01 K/uL (0-0.2); Basophils % (auto) 0.1 %; Eosinophils # (auto) 0.01 K/uL (0-0.5); Eosinophils % (auto) 0.1 %; Immature Granulocytes # (auto) 0.06 K/uL (0.00-0.02); Immature Granulocytes % (auto) 0.4 %; Lymphocytes # (auto) 1.06 K/uL (1.2-3.4); Lymphocytes % (auto) 6.6 %; Monocytes # (auto) 1.31 K/uL (0.11-0.59); Monocytes % (auto) 8.1 %; Neutrophils # (auto) 13.69 K/uL (1.4-6.5); Neutrophils % (auto) 84.7 %
[2020-03-13 07:53] LABS: Bilirubin,Total 1.1 mg/dl (0.2-1); Globulin 2.9 gm/dl (2.5-4.0); Total Protein 5.9 gm/dl (6.4-8.2); Troponin I 0.212 ng/ml (0-0.045)
[2020-03-13] MEDS: METOPROLOL SUCC 25MG EXT REL TAB PO SCH (08:13)
[2020-03-13] MEDS: TICAGRELOR 90 MG TAB PO SCH (08:15)
[2020-03-13] MEDS ORDERED: ASPIRIN 81 MG ECTAB PO SCH (09:00)
[2020-03-13] MEDS ORDERED: POLYETHYLENE (MIRALAX) 17 GM PACK PO SCH (09:00)
[2020-03-13 10:02] LABS: Hepatitis B Surface Antigen Neg (Neg)
[2020-03-13 10:31] LABS: Hepatitis C IgG 13Yrs+Old_Rflx Neg (Neg)
--- NOTE | 2020-03-13 10:54 | Cardiology Progress Note ---
Date of Service March 13, 2020 Assessment & Plan (1) Ventricular tachycardia: -history of paroxysmal ventricular tachycardia. -dysrhythmia resolved with intravenous amiodarone. -can convert to oral dosing at 200 mg b.i.d. when current infusion completed. (2) Rapid atrial fibrillation: -cost inappropriate therapies during his hospitalization October 2019. -amiodarone as above. -does not take long-term anticoagulation. (3) Elevated troponin: -mild elevation likely secondary to rapid atrial fibrillation and his ventricular tachycardia. -troponin trending down. -tolerating metoprolol succinate. (4) Coronary artery disease: -complex history, details unknown (5) Ischemic cardiomyopathy: -patient reports an ejection fraction of 25%. -this is supported by his medical therapy. (6) Cardiac defibrillator in place: -interrogation today noted ventricular tachycardia without therapies delivered. -Dr. Snyder will manage. Admission and Anticipated Discharge Date Admission Date: March 12, 2020 Subjective The patient is resting comfortably in bed without complaints of chest pain, dyspnea, or palpitations. He requests that his defibrillator be turned off. Physical Exam Physical Exam: In general this is a well-developed well-nourished white male in no acute distress. HEENT exam is negative. Neck is supple with full carotid upstrokes. There are no carotid bruits. Jugular is pressure is flat at 90 degrees. No thyromegaly. Cardiovascular exam reveals a regular rhythm with distant heart sounds. No obvious murmurs. No S3. Lungs are clear without rales, rhonchi or wheezes. Chest reveals a palpable device in the left subclavicular region. Abdomen is soft without bruits. Extremities reveal intact radial artery pulses bilaterally. There is no peripheral edema. Results & Data ([facility]) Vital Signs (Past 12 Hours) Vital Signs Temp Pulse Pulse Resp BP Pulse Ox 03/13/20 07:28 36.5 C 81 19 83/55 L 99 03/13/20 02:59 36.6 C 80 19 104/72 97 03/12/20 23:07 80 03/12/20 23:03 36.5 C 80 19 105/73 100 Laboratory Results CBC notes hemoglobin 13.0, crit 39.3, white count 16.1, platelet count of 216203. Electrolytes in a sodium of 134, potassium 4.4, chloride 100, bicarb 27, BUN 15, creatinine 2.53, glucose of 100. Troponin I level on presentation was 0.176 with follow-up values of 0.248 and 0.212. Diagnostic Findings EKG notes atrial pacing and incomplete right bundle branch block long with an old inferior GA pattern. satellite project site monitor notes appropriate atrial pacing. No further atrial or ventricular dysrhythmias. PG Care Time/CCT Total # of Minutes Spent Total Time Spent with Patient: Total time spent is greater than 50% in coordination of care (as documented) at patient's floor/unit and/or counseling patient: Coding Level of Care Code 08254 Subseq Hosp Care Lvl 3 Diagnoses Ventricular tachycardia I47.2 Rapid atrial fibrillation I48.91 Elevated troponin R79.89 Coronary artery disease I25.10 Ischemic cardiomyopathy I25.[address] Z95.810
--- NOTE | 2020-03-13 13:06 | Electrocardiogram Report ---
Test Reason : Blood Pressure : / mmHG Vent. Rate : 080 BPM Atrial Rate : 080 BPM P-R Int : 282 ms QRS Dur : 166 ms QT Int : 400 ms P-R-T Axes : -20 097 -55 degrees QTc Int : 461 ms Atrial-paced rhythm with prolonged AV conduction Right bundle branch block Inferior infarct , age undetermined T wave abnormality, consider lateral ischemia Abnormal ECG When compared with ECG of 12-MAR-2020 12:19, Electronic atrial pacemaker has replaced Wide QRS tachycardia Vent. rate has decreased BY 142 BPM Confirmed by Carlos Manuel Falcon ([id number]) on 03/13/2020 1:05:45 PM Referred By: REFERRED SELF Confirmed By:Carlos Manuel Falcon
--- NOTE | 2020-03-13 13:21 | Electrocardiogram Report ---
Test Reason : Blood Pressure : / mmHG Vent. Rate : 098 BPM Atrial Rate : 068 BPM P-R Int : 000 ms QRS Dur : 226 ms QT Int : 526 ms P-R-T Axes : 000 -71 095 degrees QTc Int : 671 ms Poor data quality, interpretation may be adversely affected Ventricular-paced rhythm Abnormal ECG When compared with ECG of 12-MAR-2020 12:51, (unconfirmed) Electronic ventricular pacemaker has replaced Electronic atrial pacemaker Confirmed by Carlos Manuel Falcon ([id number]) on 03/13/2020 1:21:01 PM Referred By: REFERRED SELF Confirmed By:Carlos Manuel Falcon
--- NOTE | 2020-03-13 13:21 | Electrocardiogram Report ---
Test Reason : Blood Pressure : / mmHG Vent. Rate : 080 BPM Atrial Rate : 080 BPM P-R Int : 246 ms QRS Dur : 164 ms QT Int : 416 ms P-R-T Axes : 064 086 -58 degrees QTc Int : 479 ms Poor data quality, interpretation may be adversely affected Atrial-paced rhythm with prolonged AV conduction Right bundle branch block Inferior infarct , age undetermined T wave abnormality, consider lateral ischemia Abnormal ECG When compared with ECG of 12-MAR-2020 13:06, (unconfirmed) Electronic atrial pacemaker has replaced Electronic ventricular pacemaker Confirmed by Carlos Manuel Falcon ([id number]) on 03/13/2020 1:21:08 PM Referred By: REFERRED SELF Confirmed By:Carlos Manuel Falcon
--- NOTE | 2020-03-13 13:37 | Electrocardiogram Report ---
Test Reason : Blood Pressure : / mmHG Vent. Rate : 080 BPM Atrial Rate : 080 BPM P-R Int : 212 ms QRS Dur : 156 ms QT Int : 442 ms P-R-T Axes : 004 084 055 degrees QTc Int : 509 ms Atrial-paced rhythm with prolonged AV conduction Right bundle branch block Inferior infarct (cited on or before 12-MAR-2020) Abnormal ECG When compared with ECG of 12-MAR-2020 13:07, (unconfirmed) Nonspecific T wave abnormality has replaced inverted T waves in Inferior leads Confirmed by Carlos Manuel Falcon ([id number]) on 03/13/2020 1:37:23 PM Referred By: REFERRED SELF Confirmed By:Carlos Manuel Falcon
--- NOTE | 2020-03-13 16:09 | Cardiology Progress Note ---
Date of Service March 13, 2020 Assessment & Plan Admission and Anticipated Discharge Date Admission Date: March 12, 2020 Subjective Patient is feeling well today in general, he is alert and oriented and he is with his family. He does not want to have ICD therapy in the future and understands that he could from lack of therapy, he also understands that that is not what brought him into the hospital this time. He is a DNR status already. He has requested that we turn his ICD therapy off believe the pacing portion on. Results & Data ([facility]) Vital Signs (Past 12 Hours) Vital Signs Temp Pulse Resp BP Pulse Ox 03/13/20 15:48 36.4 C L 80 19 106/72 94 03/13/20 11:19 36.4 C L 80 19 106/72 94 03/13/20 07:28 36.5 C 81 19 83/55 L 99 Diagnostic Findings I interrogated his ICD which is working properly and I programmed his ICD shock therapies off. Pacing parameters remain unchanged. PG Care Time/CCT Total # of Minutes Spent Total Time Spent with Patient: Total time spent is greater than 50% in coordination of care (as documented) at patient's floor/unit and/or counseling patient: Coding Level of Care Code None CPT Codes Implantable Defib dual lead programming - [id number] ([id number])
--- NOTE | 2020-03-13 19:01 | Discharge Summary ---
Date of Service March 13, 2020 Admission HPI Per Admitting Provider Noah Doll is a 69-year-old male who presents to the ER via EMS with shortness of breath and wide-complex tachycardia. He reports having nausea and vomiting for the last 3 days with increased weakness and poor appetite. Today he was having increased shortness of breath with O2 sats in 70s. The patient was noted to have multiple wide-complex tachycardias by EMS prior to arrival. He has an ICD in place which did not fire. He had a pulse therefore he was not defibrillated. In the ER he was given a loading dose of IV amiodarone and started on an IV drip. With regards to his nausea vomiting. He reports no fevers, chills, abdominal pain, dysphagia, odynophagia, hematemesis, melena, bright red blood in stool, diarrhea, constipation. There is reported any having small bowel movements for the past 3 days. He has a longstanding history under Dr. Kohler with coronary artery disease, severe ischemic cardiomyopathy with an ICD in place, multiple sustained ventricular tachycardia's with previous ablations performed at [facility] under Dr Thompson and paroxysmal atrial fibrillation. I know this patient briefly from his previous hospital admission at [facility] in October where his pacemaker/ICD was inappropriately over pacing for atrial fibrillation causing ventricular arrhythmias therefore then causing his ICD to fire appropriately. At that time he was not on amiodarone. The patient wanted to leave as soon as possible on that admission and his pacemaker/ICD settings were changed by Dr. Kohler remotely discussing with the [facility]. The patient reports being started on amiodarone shortly after being discharged and following up with Dr. Kohler. He was not on anticoagulation for his atrial fibrillation at that time, he has previously been on warfarin in the past. Last known cardiac catheterization in February 2019. At that time had a chronic total occlusion of the RCA and severe stenosis of the circumflex providing left to right collateralization. He underwent successful PCI to the left circumflex on that procedure. Principal Diagnosis Ischemic cardiomyopathy Discharge Exam Constitutional WD/WN, vitals as above Eyes EOM intact bilaterally; no conjunctival abnormality ENMT external ear and nose normal, oropharynx normal Neck trachea midline, no thyromegaly normal visual inspection Respiratory normal respiratory effort, lungs clear to auscultation no respiratory distress Cardiovascular RRR, no murmur, no edema Gastrointestinal (Abdomen) Inspection/Auscultation: abdomen normal to inspection; abdomen not distended Musculoskeletal no cyanosis or clubbing, extremities motor strength 5/5 Skin no rashes, warm and dry Neurologic moves all extremities and awake Psychiatric Orientation: alert, oriented to person and cooperative Discharge Data Allergies Allergy/AdvReac Type Severity Reaction Status Date / Time No Known Allergies Allergy Unverified 03/12/20 13:26 Consultations 03/12/20 13:34 ED Decision to Admit Stat 03/12/20 14:06 Consult Cardiology Stat Consult Palliative Care Routine Ordered Studies 03/12/20 13:56 CT abd pelvis wo con Stat Hospital Course (1) Goals of care, counseling/discussion: DNR/DNI. - Wanted to go home. Turned off ICD by Dr. Snyder at patient's request. POLST form completed. (2) Ventricular tachycardia: Continue amiodarone IV as per Dr Falcon recommendations, will defer IV lidocaine to cardiology Continue his usual metoprolol dosing with hold parameters Appreciate cardiology management of this. Discussed with Dr Falcon and Dr Snyder in the ER. (3) Nausea and vomiting: CT A/P w/o IV contrast -concerning for mild gallbladder distention with possible minimal infiltration adjacent to the gallbladder neck. In addition 3 mm calcification within the pancreatic head possibly reflecting, bile duct calculus. We discussed further investigations/management of this with MRCP however definitive management would require ERCP therefore the patient declines further work-up of this even if this means he would . Lipase WNL (4) Elevated LFTs: Suspected shock liver in setting of hypoperfusion with wide complex tachycardia. CT A/P performed after he was transferred to PCU concerning for possible choledocholithiasis vs cholecystitis vs cholangitis. Discussed further intervention/investigations with MRCP/ERCP, GI consult - declines all of these. He is willing to have IV antibiotics to potentially treat any infection. Start renally dosed Zosyn to cover both possible GI +/- urine source. Trend LFTs (5) JOSSUE (acute kidney injury): Creatinine 3.71 on admission. Previously 1.2 in October. Suspect pre-renal from cardiac shock and dehydration from nausea and vomiting Continue LR @125 ml/hr - given history of heart failure with reduced ejection fraction will avoid aggressive fluid resuscitation but if hypotensive can give occasional boluses to maintain blood pressure. (6) Acute respiratory failure with hypoxia: No pulmonary edema on CXR. Suspect secondary to hypoperfusion from wide complex tachycardia rather than inherent lung issue. Possible PE but unable to get CT with contrast due to JOSSUE. Aim O2 sats > 94% (7) Ischemic cardiomyopathy: Last known echocardiogram 20 to 25% although it has been as low as 10 to 15% in the past. Continue metoprolol. Unable to take HERMINIO inhibitor or ARB due to hypotension and JOSSUE. (8) HFrEF (heart failure with reduced ejection fraction): Chronic heart failure but he currently appears hypervolemic on exam, labs, and imaging. Hold spironolactone, monitor for worsening respiratory status. No current pulmonary edema on chest x-ray or exam. (9) Coronary artery disease: Continue aspirin, Brilinta, metoprolol. Unclear on admission why is not on a statin. (10) Elevated troponin: Trend overnight. Suspect will continue to increase given wide-complex tachycardia due to demand ischemia. Even if he has had ACS we would be unable to perform cardiac cath due to JOSSUE but also patient unlikely to be amenable to this anyway. Optimize medical management. (11) Paroxysmal atrial fibrillation: Not on long-term anticoagulation although I am unclear on the reasons for this on admission. Currently in atrial paced rhythm (12) Urinary incontinence: Chronic due to previous back injury per patient. Meredith catheter placed to monitor I's and O's (13) DVT prophylaxis: Given elevated INR and unclear why he is not on chronic anticoagulation will defer to chemical prophylaxis for now but likely can be started tomorrow if no intervention is planned. SCDs Total Time Total Time Spent Total Time Spent (In Minutes): 35 Discharge Plan Discharge Items Patient Disposition: Home - Home Health Services Reason For Visit: WIDE COMPLEX TACHYCARDIA Discharge Diagnosis: Ventricular tachycardia Activity: Resume your previous activity Non-emergency contact: Primary Care Provider Call non-emergency contact if: your symptoms worsen Follow-up/Referrals: Kashif Poole [Primary Care Provider] - Diet: Heart Healthy Addtl Attending Provider Instructions: You were admitted to the hospital with shortness of breath and a heart arrhythmia. From discussing with you, you do not want further intervention and would like your ICD/pacemaker to stop adjusting/influencing your heart rhythm. As we discussed, this will be fatal if your heart goes into an abnormal rhythm. You are aware of this and understand this very well may happen. We discussed end-of-life care, and you felt that you would do well at home with some home health which we have arranged. To try to prevent abnormal heart rhythms, we are continuing your amiodarone. You should take this 2 times per day for [address] Kohler to update him on how you're doing. Pending Studies at Discharge: No Stand-Alone Forms: My [facility], Smoking Cessation Medications and DC Order Prescriptions: Continued spironolactone 25 mg tablet 25 mg PO DAILY RF: 0 aspirin 81 mg tablet,delayed release (DR/EC) 81 mg PO QAM RF: 0 Brilinta 90 mg tablet 90 mg PO BID RF: 0 nitroglycerin [Nitrostat] 0.4 mg Tablet, Sublingual 0.4 mg sublingual UD PRN (Reason: Chest Pain) RF: 0 furosemide [Lasix] 20 mg tablet 20 mg PO Q2D RF: 0 metoprolol succinate [Toprol XL] 25 mg tablet extended release 24 hr 12.5 mg PO QAM RF: 0 Changed amiodarone 200 mg tablet 200 mg PO BID Qty: 60 RF: 0 Discharge Orders: Discharge Order (Routine); Ordered 03/13/20 Ordered By: Rangel Lincoln Admission Data Admit Date/Time: 03/12/20 14:06 Attending Provider: Rangel Lincoln Admit Provider: Myke Barcenas Primary Care Provider: Kashif Poole Other Providers: Carlos Manuel Falcon ; Sue Ross ; Rangel Lincoln Other Interventions: Discharge Summary Assessment (RN) Last Done: 03/13/20 15:48 Coding Level of Care Code D/C Day Management >30 mins Diagnoses Goals of care, counseling/discussion Z71.89 Ventricular tachycardia I47.2 Nausea and vomiting R11.2 Elevated LFTs R79.89 JOSSUE (acute kidney injury) N17.9 Acute respiratory failure with hypoxia J96.01 Ischemic cardiomyopathy I25.5 HFrEF (heart failure with reduced ejection fraction) I50.20 Coronary artery disease I25.10 Elevated troponin R79.89 Paroxysmal atrial fibrillation I48.0 Urinary incontinence R32 DVT prophylaxis Z29.9
[2020-03-14 14:24] LABS: Hepatitis A Antibody IgM NON-REACTIVE (NON-REACTIVE); Hepatitis B Core Antibody IgM NON-REACTIVE (NON-REACTIVE)
== END 2020-03-13 16:25 | disposition home health service (06) | DRG 308 ==
LOC: ED 12:16 → SUATTDRO 14:06 → 2S 14:06